=== PATIENT | female | born 1960 | race Caucasian/White ===

== ENCOUNTER 2020-12-10 21:35 | Emergency (ER) | payer MEDICARE, SELFPAY ==
[2020-12-10 21:36] VITALS: BP 96/62; PULSE 87; RESP 19; O2SAT 100
[2020-12-10 21:37] VITALS: BP 96/62; PULSE 86; RESP 20; TEMP 36.4; O2SAT 98; BMI 28.4
[2020-12-10 21:41] VITALS: BP 96/62; PULSE 86; RESP 18; TEMP 36.4; O2SAT 99
--- NOTE | 2020-12-10 22:18 | CT_ITS ---
INDICATION: left sided abd pain EXAMINATION: CT Abdomen And Pelvis W/ Contrast Injection TECHNIQUE: Helically acquired images were obtained of the abdomen and pelvis after IV contrast. A radiation dose optimization technique was used for this scan. IV Contrast dosage and agent: IV 100mL [id number]-300 Oral contrast: None. COMPARISON: None. FINDINGS: Visualized lung bases: 1 cm calcified granuloma in the lingula. Chronic interstitial lung changes. Liver: Unremarkable Gallbladder: Unremarkable Spleen: Unremarkable Pancreas: Unremarkable Adrenal Glands: Unremarkable Kidneys: Scattered too small to characterize subcentimeter hypodensities bilaterally. Vasculature: Unremarkable GI Tract: Hiatal hernia. The ascending, transverse and descending colon is prominent and filled with stool and fluid. There is mild circumferential wall thickening of the transverse colon with subtle surrounding mesenteric fat stranding. In the sigmoid colon there is a large amount of impacted stool. Distal to this the colon is decompressed. No small bowel dilatation. Lymphadenopathy: None Peritoneum: Trace free fluid in the left paracolic gutter. Bladder: Distended. Reproductive organs: Calcified fibroid. Bones/Soft tissues: No suspicious osseous or soft tissue lesions CT/Abdomen/Pelvis W IV Cont ONLY IMPRESSION: Findings concerning for infectious or inflammatory colitis. Cannot rule out early partial large bowel obstruction as there is impacted stool in the sigmoid colon with downstream decompressed colon and upstream dilated colon. No small bowel dilatation. Electronically Signed: Tung Hill MD at 23:55 EDT Tel , Service support ,
--- NOTE | 2020-12-10 22:19 | EDS_ITS ---
HPI HPI - GI History of Present Illness Chief Complaint: Abd Pain Informant: patient Abdominal Pain/Flank Pain Onset: Yesterday Context: Gradual Onset Timing: Continuous Quality: Aching Location: LLQ Current Severity: Severe Maximum Severity: Severe Worsened by: Nothing Relieved by: Nothing Nausea/Vomiting/Emesis GI Symptom: Positive for Nausea; Negative for Vomiting Onset: Today Diarrhea/Melena/Hematochezia GI Symptom: Positive for - (Last bowel movement 4 days ago, no blood); Negative for Diarrhea, Melena and Hematochezia Associated Symptoms Associated Symptoms: Negative for Dysuria, Frequency, Hematuria and Urgency Narrative Narrative: Patient with gradual onset mid lower abdominal pain that has gotten worse today, has a history of ischemic colitis. Not able to provide much in the way of details because she feels so poorly. Nauseated, no bowel movement in the last several days. No history of any abdominal surgeries in the past. Takes no anticoagulants. [facility] Medical History Colitis Gout HTN (hypertension) Home Medications allopurinol 100 mg PO DAILY 12/10/20 [History Last Taken Unknown] levothyroxine 50 mcg PO DAILY 12/10/20 [History Last Taken Unknown] lisinopril 40 mg PO DAILY 12/10/20 [History Last Taken Unknown] methocarbamol 750 mg PO TID 12/10/20 [History Last Taken Unknown] metoprolol tartrate 50 mg PO BID 12/10/20 [History Last Taken Unknown] oxycodone-acetaminophen 1 tab PO TID PRN 12/10/20 [History Last Taken Unknown] Allergy/AdvReac Type Severity Reaction Status Date / Time prednisone Allergy Other Verified 12/10/20 21:36 Surgical History History of History of tonsillectomy History of tubal ligation Social History Smoking Status: Former smoker ROS ROS ED Constitutional Constitutional ED: Denies chills or fever(s) Eyes Eyes: Denies change in vision or diplopia ENT ENT ED: Denies rhinorrhea or sore throat Cardiovascular Cardiovascular: Denies chest pain or palpitations Respiratory/Chest Respiratory/Chest: Denies cough or dyspnea Gastrointestinal Gastrointestinal: Denies abdominal pain or nausea Genitourinary Genitourinary ED: Denies dysuria or hematuria Musculoskeletal Musculoskeletal: Denies back pain or neck pain Integumentary Denies abscess or rash Neurologic Neurologic: Denies headache(s), paresthesias or weakness Psychiatric Psychiatric: Denies anxiety or suicidal thoughts EXAM Physical Exam Const Vital Signs: 12/10/20 21:36 12/10/20 21:37 12/10/20 21:41 Temperature 97.6 F L 97.6 F L Temperature Source Oral Oral Pulse Rate 87 86 86 Respiratory Rate 19 H 20 H 18 Blood Pressure 96/62 96/62 96/62 Blood Pressure Mean 73 73 73 Pulse Ox 100 98 99 Oxygen Delivery Method Room Air Room Air Room Air 12/10/20 22:36 12/10/20 22:41 12/10/20 23:00 Temperature 97.6 F L 98.1 F Temperature Source Oral Temporal Pulse Rate 80 80 81 Respiratory Rate 16 16 15 Blood Pressure 106/68 106/68 93/59 L Blood Pressure Mean 80 80 70 Pulse Ox 99 99 99 Oxygen Delivery Method Room Air Room Air Room Air 12/11/20 00:00 12/11/20 00:07 Temperature 97.8 F Temperature Source Temporal Pulse Rate 80 Respiratory Rate 16 Blood Pressure 91/71 75/59 L Blood Pressure Mean 77 64 Pulse Ox 99 Oxygen Delivery Method Room Air Positive well nourished, well developed and obese General Appearance ED: well developed and other Ill-appearing, able to talk in short sentences, alert Nutritional Appearance: obese HEENT Reports moist mucous membranes normocephalic and atraumatic Eyes PERRL and EOMs intact bilaterally Neck full ROM and supple Resp normal respiratory effort and clear to auscultation bilaterally Cardio regular rate, regular rhythm and no murmurs GI non-distended Auscultation: hypoactive bowel sounds Palpation: soft, tender LLQ (Most severe) and LUQ and guarding LLQ Back/Spine no CVA tenderness General Back: other FROM Extremity normal to inspection General Extremety ED: Negative for edema, pulses abnormal or tenderness General Extremity: Negative for edema or pulses abnormal Neuro oriented x3, CN's II-XII intact bilaterally and no sensory deficits noted Sensorium / Orientation: awake, alert and lethargic Motor Exam: strength 5/5 throughout Skin no rashes or lesions noted and no wounds MDM MDM MDM Narrative Medical decision making narrative: Patient was given a liter bolus and she had transient hypotension that was borderline at the time of evaluation, her sodium came back at 119 but after the liter was done her blood pressure was in the 70s so I felt the benefits of giving her another bolus outweighed the risks. With the CT results and leukocytosis, empiric antibiotics were started. Her lactic acid is within normal limits making ischemic colitis less likely. Since she is not vomiting an NG tube was not placed. Plan is for admission and further care. Pain was treated with fentanyl because of her blood pressure. She said I need Dilaudid, this was not done due to her blood pressures. I give her another dose of fentanyl. Her nausea was also treated. Lab Data Attestation: I reviewed the patient's lab results. Labs: Laboratory Results - last 24 hr 12/10/20 12/10/20 12/10/20 22:35 22:35 22:35 WBC 15.4 H RBC 3.69 L Hgb 11.4 L Hct 32.7 L MCV 88.6 MCH 30.9 MCHC 34.9 RDW Std Deviation 39.0 RDW Coeff of Thanh 12.0 Plt Count 384 MPV 9.4 Immature Gran % (Auto) 0.300 Neut % (Auto) 76.3 H Lymph % (Auto) 16.2 L [place] % (Auto) 4.7 Eos % (Auto) 2.0 Baso % (Auto) 0.5 Absolute Neuts (auto) 11.7 H Absolute Lymphs (auto) 2.50 Nucleated RBC % 0 Sodium 119 L* Potassium 4.0 Chloride 86 L Carbon Dioxide 23.0 Anion Gap 10 BUN 15 Creatinine 0.84 Estim Creat Clear Calc 58.18 Est GFR (MDRD) Af Amer 89 Est GFR (MDRD) Non-Af 74 BUN/Creatinine Ratio 17.9 Glucose 114 H Lactic Acid 1.4 Calcium 8.8 Total Bilirubin 1.00 AST 99 H ALT 154 H Alkaline Phosphatase 654 H Total Protein 8.0 Albumin 3.2 Globulin 4.8 H Albumin/Globulin Ratio 0.7 L Lipase 304 Urine Color Urine Clarity Urine pH Ur Specific [place] Urine Protein Urine Glucose (UA) Urine Ketones Urine Occult Blood Urine Nitrite Urine Bilirubin Urine Urobilinogen Ur Leukocyte Esterase Urine RBC Urine WBC Ur Squamous Epith Cells Urine Bacteria Hyaline Casts Urine Mucus Urine Yeast 12/10/20 22:55 WBC RBC Hgb Hct MCV MCH MCHC RDW Std Deviation RDW Coeff of Thanh Plt Count MPV Immature Gran % (Auto) Neut % (Auto) Lymph % (Auto) [place] % (Auto) Eos % (Auto) Baso % (Auto) Absolute Neuts (auto) Absolute Lymphs (auto) Nucleated RBC % Sodium Potassium Chloride Carbon Dioxide Anion Gap BUN Creatinine Estim Creat Clear Calc Est GFR (MDRD) Af Amer Est GFR (MDRD) Non-Af BUN/Creatinine Ratio Glucose Lactic Acid Calcium Total Bilirubin AST ALT Alkaline Phosphatase Total Protein Albumin Globulin Albumin/Globulin Ratio Lipase Urine Color Yellow Urine Clarity Cloudy Urine pH 7.0 Ur Specific [place] 1.010 Urine Protein Negative Urine Glucose (UA) Normal Urine Ketones 5 H Urine Occult Blood 10 H Urine Nitrite Negative Urine Bilirubin Negative Urine Urobilinogen 4 H Ur Leukocyte Esterase 25 H Urine RBC 0-5 SEEN Urine WBC 5-10 SEEN Ur Squamous Epith Cells 10-25 SEEN Urine Bacteria 1+ Hyaline Casts 0-5 SEEN Urine Mucus 0 SEEN Urine Yeast RARE Radiography Diagnostic Testing: Radiology Impression Abdomen/Pelvis CT 12/10/20 22:18 IMPRESSION: Findings concerning for infectious or inflammatory colitis. Cannot rule out early partial large bowel obstruction as there is impacted stool in the sigmoid colon with downstream decompressed colon and upstream dilated colon. No small bowel dilatation. Electronically Signed: Tung Hill MD at 23:55 EDT Tel , Service support , Critical Care Time Critical Care Time: Yes Critical care time (excluding procedures): 30-74 minutes (32 min), Including time spent:, Discussing w/Patient &/or Family/Director Of Database Marketing, Discussing w/Consultants, Arranging Admission or Transfer and Performing Direct Patient Care at Bedside Discharge Plan Dx/Rx/DC Orders Clinical Impression: Acute colitis, Acute hypotension, Acute hyponatremia Disposition Disposition: [facility]
[2020-12-10 22:36] VITALS: BP 106/68; PULSE 80; RESP 16; O2SAT 99
[2020-12-10] MEDS: Ondansetron 4 MG/2 ML Vial IV (22:38)
[2020-12-10] MEDS: fentaNYL 100 MCG/2 ML Ampul 50 MCG IV (22:38)
[2020-12-10] MEDS: 0.9% Normal Saline 1,000 ML 1000 ML IV (22:39)
[2020-12-10 22:41] VITALS: BP 106/68; PULSE 80; RESP 16; TEMP 36.4; O2SAT 99
[2020-12-10 22:49] LABS: Absolute Neutrophil Count 11.7 X10^3/uL (2.0-7.7); Basophil# 0.08 X10^3/uL; Basophil% 0.5 % (0-1); Eosinophil# 0.31 X10^3/uL; Hematocrit 32.7 % (37-47); Hemoglobin 11.4 g/dL (12.0-15.0); Lymphocyte % 16.2 % (19-41); Mean Corp Hgb Conc 34.9 g/dL (32-36); Mean Corpuscular Hgb 30.9 pg (27.0-32.0); Mean Corpuscular Volume 88.6 fL (81-99); Mean Platelet Vol. 9.4 fl (6.2-12.0); Monocyte# 0.73 X10^3/uL; Monocyte% 4.7 % (0-10); NRBC Flagged by Analyzer 0 % (0-5); Neutrophil # 11.73 X10^3/uL (2.7-7.7); Neutrophil % 76.3 % (47-70); Platelet Count 384 K/mm3 (150-450); Red Blood Count 3.69 M/mm3 (4.2-5.4); White Blood Count 15.4 K/mm3 (4.4-11.0)
[2020-12-10 23:00] VITALS: BP 93/59; PULSE 81; RESP 15; TEMP 36.7; O2SAT 99
[2020-12-10 23:00] LABS: Mucous, Urine 0 SEEN /hpf (<or=2+)
[2020-12-10 23:12] LABS: Color, Urine Yellow (Yellow); Glucose, Dipstick Normal (Normal); Ketone-Dipstick 5 mg/dl (Negative); Leukocyte Esterase-Dipstick 25 /ul (Negative); Nitrite-Dipstick Negative (Negative); Occult Blood-Urine 10 /ul (Negative); Protein-Dipstick Negative (Negative); Urine Bilirubin Dipstick Negative (Negative); Urine Clarity Cloudy (Clear); Urine Urobilinogen 4 mg/dl (Normal)
[2020-12-10 23:18] LABS: ALB/GLOB Ratio 0.7 RATIO (0.9-2.4); AST(SGOT) 99 U/L (15-37); Alanine Aminotransfer ALT/SGPT 154 U/L (13-56); Albumin, Serum 3.2 g/dL (3.2-5.0); Alkaline Phosphatase 654 U/L (45-117); Anion Gap 10 (5-15); BUN 15 mg/dL (7-18); BUN/Creat Ratio 17.9 RATIO (10-20); Calcium,Total 8.8 mg/dL (8.5-10.1); Chloride 86 mmol/L (98-107); Creatinine, Serum 0.84 mg/dL (0.55-1.02); EST Glomerular Filtration Rate 74 mL/min (>60); Est Glom Filt Rate - Afr Amer 89 mL/min (>60); Estimated Creatinine Clearance 58.18 ml/min; Globulin 4.8 g/dL (2.2-4.2); Glucose 114 mg/dL (74-106); Lipase 304 U/L (73-393); Sodium Level 119 mmol/L (136-145)
[2020-12-10 23:30] LABS: Bacteria 1+ /hpf (None Seen); Hyaline Cast 0-5 SEEN /lpf (0-5)
[2020-12-10 23:35] LABS: Squamous Epithelial Cells - UA 10-25 SEEN /hpf (5-10)
[2020-12-10 23:35] LABS: Lactic Acid 1.4 mmol/L (0.4-1.9)
[2020-12-10 23:36] LABS: Red Blood Cells-Urine 0-5 SEEN /hpf (0-5); White Blood Cells 5-10 SEEN /hpf (0-5); Yeast-Urine RARE /hpf (None Seen)
[2020-12-11] VITALS (15 sets, daily range): BP systolic 64–110; BP diastolic 42–71; PULSE 80–98; RESP 14–18; TEMP 36.1–36.9; O2SAT 94–99
[2020-12-11] MEDS: fentaNYL 100 MCG/2 ML Ampul IV (00:16)
[2020-12-11] MEDS: 0.9% Normal Saline 1,000 ML 999 ML IV (00:16)
[2020-12-11] MEDS: Ciprofloxacin 400 MG/200 ML BAG 200 MG IV (00:25)
--- NOTE | 2020-12-11 01:00 | HP.PCM_ITS ---
HPI - General General Date of Admission: 12/11/20 HPI Narrative JOHNNA NORMAN, is a 60 F who presents with a 3-day history of abdominal pain. Patient reports she has not had a bowel movement in 4 to 5 days. Patient states abdominal pain is all over her abdomen and 10 out of 10 despite having received multiple doses of pain medication. Patient also reports nausea. Patient denies fever, chills, diarrhea or vomiting. [facility] Medical History (Updated 12/11/20 @ 01:06 by Darlene Simmons NP-C) Gout HTN (hypertension) Hypothyroidism Home Medications allopurinol 100 mg PO DAILY 12/10/20 [History Last Taken Unknown] levothyroxine 50 mcg PO DAILY 12/10/20 [History Last Taken Unknown] lisinopril 40 mg PO DAILY 12/10/20 [History Last Taken Unknown] methocarbamol 750 mg PO TID 12/10/20 [History Last Taken Unknown] metoprolol tartrate 50 mg PO BID 12/10/20 [History Last Taken Unknown] oxycodone-acetaminophen 1 tab PO TID PRN 12/10/20 [History Last Taken Unknown] Allergy/AdvReac Type Severity Reaction Status Date / Time prednisone Allergy Other Verified 12/10/20 21:36 Surgical History History of History of tonsillectomy History of tubal ligation Social History Smoking Status: Former smoker ROS Constitutional Constitutional: Denies anorexia, chills or fever(s) Cardiovascular Cardiovascular: Denies chest pain, edema or palpitations Respiratory/Chest Respiratory/Chest: Denies cough, shortness of breath at rest or shortness of breath with exertion Gastrointestinal Gastrointestinal: Reports abdominal pain, constipation and nausea; Denies diarrhea, melena or vomiting Genitourinary Genitourinary: Denies dysuria Musculoskeletal Musculoskeletal: Denies back pain, extremity pain, joint pain or joint stiffness Integumentary Integumentary: Denies dry skin Neurologic Neurologic: Denies abnormal gait or abnormal speech Psychiatric Psychiatric: Denies anxiety or depression Endocrine Endocrinology: Denies change in body appearance Hematologic/Lymphatic Hematologic/Lymphatic: Denies easy bleeding or easy bruising Vital Signs Vital Signs Vital Signs: 12/10/20 21:36 12/10/20 21:37 12/10/20 21:41 Temperature 97.6 F L 97.6 F L Temperature Source Oral Oral Pulse Rate 87 86 86 Respiratory Rate 19 H 20 H 18 Blood Pressure 96/62 96/62 96/62 Blood Pressure Mean 73 73 73 Pulse Ox 100 98 99 Oxygen Delivery Method Room Air Room Air Room Air 12/10/20 22:36 12/10/20 22:41 12/10/20 23:00 Temperature 97.6 F L 98.1 F Temperature Source Oral Temporal Pulse Rate 80 80 81 Respiratory Rate 16 16 15 Blood Pressure 106/68 106/68 93/59 L Blood Pressure Mean 80 80 70 Pulse Ox 99 99 99 Oxygen Delivery Method Room Air Room Air Room Air 12/11/20 00:00 12/11/20 00:07 Temperature 97.8 F Temperature Source Temporal Pulse Rate 80 Respiratory Rate 16 Blood Pressure 91/71 75/59 L Blood Pressure Mean 77 64 Pulse Ox 99 Oxygen Delivery Method Room Air Weight Weight: 160 lb 11.472 oz Body Mass Index (BMI) 28.4 Physical Exam Const alert and oriented x3 Nutritional Appearance: obese HEENT normocephalic and head/scalp atraumatic Eyes conjunctivae normal and no scleral icterus Neck supple and no JVD General: trachea midline Resp normal respiratory effort, normal air movement and clear to auscultation bilaterally Cardio regular rate, regular rhythm, S1 normal heart sound and S2 normal heart sound GI Auscultation: hypoactive bowel sounds Palpation: tender and guarding Extremity normal capillary refill and no clubbing, cyanosis or edema General Extremity: no tenderness to palpation of joints or extremities Skin General Skin Exam: no breakdown and turgor normal Lesions: no lesions Rashes: no rashes Neuro no focal motor deficits and no sensory deficits noted Motor Exam: strength 5/5 throughout Psych cooperative Attitude: bizarre Speech: minimal Results Lab / Micro Data Result Diagrams: 12/10/20 22:35 12/10/20 22:35 Labs: Laboratory Results - last 24 hr 12/10/20 12/10/20 12/10/20 22:35 22:35 22:35 WBC 15.4 H RBC 3.69 L Hgb 11.4 L Hct 32.7 L MCV 88.6 MCH 30.9 MCHC 34.9 RDW Std Deviation 39.0 RDW Coeff of Thanh 12.0 Plt Count 384 MPV 9.4 Immature Gran % (Auto) 0.300 Neut % (Auto) 76.3 H Lymph % (Auto) 16.2 L [place] % (Auto) 4.7 Eos % (Auto) 2.0 Baso % (Auto) 0.5 Absolute Neuts (auto) 11.7 H Absolute Lymphs (auto) 2.50 Nucleated RBC % 0 Sodium 119 L* Potassium 4.0 Chloride 86 L Carbon Dioxide 23.0 Anion Gap 10 BUN 15 Creatinine 0.84 Estim Creat Clear Calc 58.18 Est GFR (MDRD) Af Amer 89 Est GFR (MDRD) Non-Af 74 BUN/Creatinine Ratio 17.9 Glucose 114 H Lactic Acid 1.4 Calcium 8.8 Total Bilirubin 1.00 AST 99 H ALT 154 H Alkaline Phosphatase 654 H Total Protein 8.0 Albumin 3.2 Globulin 4.8 H Albumin/Globulin Ratio 0.7 L Lipase 304 Urine Color Urine Clarity Urine pH Ur Specific [place] Urine Protein Urine Glucose (UA) Urine Ketones Urine Occult Blood Urine Nitrite Urine Bilirubin Urine Urobilinogen Ur Leukocyte Esterase Urine RBC Urine WBC Ur Squamous Epith Cells Urine Bacteria Hyaline Casts Urine Mucus Urine Yeast 12/10/20 22:55 WBC RBC Hgb Hct MCV MCH MCHC RDW Std Deviation RDW Coeff of Thanh Plt Count MPV Immature Gran % (Auto) Neut % (Auto) Lymph % (Auto) [place] % (Auto) Eos % (Auto) Baso % (Auto) Absolute Neuts (auto) Absolute Lymphs (auto) Nucleated RBC % Sodium Potassium Chloride Carbon Dioxide Anion Gap BUN Creatinine Estim Creat Clear Calc Est GFR (MDRD) Af Amer Est GFR (MDRD) Non-Af BUN/Creatinine Ratio Glucose Lactic Acid Calcium Total Bilirubin AST ALT Alkaline Phosphatase Total Protein Albumin Globulin Albumin/Globulin Ratio Lipase Urine Color Yellow Urine Clarity Cloudy Urine pH 7.0 Ur Specific [place] 1.010 Urine Protein Negative Urine Glucose (UA) Normal Urine Ketones 5 H Urine Occult Blood 10 H Urine Nitrite Negative Urine Bilirubin Negative Urine Urobilinogen 4 H Ur Leukocyte Esterase 25 H Urine RBC 0-5 SEEN Urine WBC 5-10 SEEN Ur Squamous Epith Cells 10-25 SEEN Urine Bacteria 1+ Hyaline Casts 0-5 SEEN Urine Mucus 0 SEEN Urine Yeast RARE Radiology Impression Abdomen/Pelvis CT 12/10/20 22:18 IMPRESSION: Findings concerning for infectious or inflammatory colitis. Cannot rule out early partial large bowel obstruction as there is impacted stool in the sigmoid colon with downstream decompressed colon and upstream dilated colon. No small bowel dilatation. Electronically Signed: uTng Hill MD at 23:55 EDT Tel , Service support , Assessment & Plan Assessment/Plan (1) Acute colitis: (2) Acute hypotension: (3) Acute hyponatremia: PLAN: 1. Acute colitis -Admit to ICU -CT concerning for infectious or inflammatory colitis. Cannot rule out early partial large bowel obstruction as there is impacted stool in the sigmoid colon with downstream decompressed colon and upstream dilated colon. -Patient received initial dose of ciprofloxacin and metronidazole in ER, will continue. -Dr. Gamble consulted for surgical evaluation -Clear liquid diet ordered -Vital signs per protocol 2. Acute hypotension -Likely secondary to colitis -IV fluids ordered -Patient received 2 L boluses in ER, no improvement in blood pressure 3. Acute hyponatremia -Etiology unknown, initial level 119. -Urine sodium,chloride, creatinine and osmolality ordered along with serum osmolality -Normal saline with 20 mEq of potassium chloride at 100 ml/hr ordered 4. Hypothyroidism -Continue levothyroxine DVT prophylaxis-subcu Lovenox This patient was seen by JOEL MorinC under the supervision of Dr. Luna.
--- NOTE | 2020-12-11 01:39 | EX.PCM.CON.S ---
Assessment & Plan Assessment/Plan (1) Acute colitis: (2) Acute abdomen: PLAN: Patient has significant abdominal pain in reviewing the CAT scan she is going to need to have colorectal surgery involvement here for a possible subtotal colectomy. I believe this patient would be better served at a tertiary referral center and have spoken to the emergency room physician who will be transferring her. HPI Consult Data Date of Consult: 12/11/20 HPI Narrative HPI Narrative: JOHNNA NORMAN, is a 60 F who presents with a 3-day history of abdominal pain. Patient reports she has not had a bowel movement in 4 to 5 days. Patient states abdominal pain is all over her abdomen and 10 out of 10 despite having received multiple doses of pain medication. Patient also reports nausea. Patient denies fever, chills, diarrhea or vomiting. Patient is also noted to be hypotensive in the emergency department. [facility] Medical History Gout HTN (hypertension) Hypothyroidism Home Medications allopurinol 100 mg PO DAILY 12/10/20 [History Last Taken Unknown] levothyroxine 50 mcg PO DAILY 12/10/20 [History Last Taken Unknown] lisinopril 40 mg PO DAILY 12/10/20 [History Last Taken Unknown] methocarbamol 750 mg PO TID 12/10/20 [History Last Taken Unknown] metoprolol tartrate 50 mg PO BID 12/10/20 [History Last Taken Unknown] oxycodone-acetaminophen 1 tab PO TID PRN 12/10/20 [History Last Taken Unknown] Allergy/AdvReac Type Severity Reaction Status Date / Time prednisone Allergy Other Verified 12/10/20 21:36 Surgical History History of History of tonsillectomy History of tubal ligation Social History Smoking Status: Former smoker ROS Constitutional Constitutional: Denies chills or fever(s) Cardiovascular Cardiovascular: Denies chest pain or dyspnea Respiratory/Chest Respiratory/Chest: Denies cough or dyspnea Gastrointestinal Gastrointestinal: Reports abdominal pain, constipation and nausea Genitourinary Genitourinary: Denies change in urinary stream Physical Exam Const alert and oriented x3 General Appearance: cooperative Eyes PERRL and EOMs intact bilaterally Resp clear to auscultation bilaterally Cardio Rate: regular rate Rhythm: regular rhythm GI Inspection: abdominal distention Auscultation: hypoactive bowel sounds Palpation: tender and guarding Extremity General Extremity: edema; Negative for calf tenderness Lab / Micro Data Result Diagrams: 12/10/20 22:35 12/10/20 22:35 Labs: Laboratory Results - last 24 hr 12/10/20 12/10/20 12/10/20 22:35 22:35 22:35 WBC 15.4 H RBC 3.69 L Hgb 11.4 L Hct 32.7 L MCV 88.6 MCH 30.9 MCHC 34.9 RDW Std Deviation 39.0 RDW Coeff of Thanh 12.0 Plt Count 384 MPV 9.4 Immature Gran % (Auto) 0.300 Neut % (Auto) 76.3 H Lymph % (Auto) 16.2 L [place] % (Auto) 4.7 Eos % (Auto) 2.0 Baso % (Auto) 0.5 Absolute Neuts (auto) 11.7 H Absolute Lymphs (auto) 2.50 Nucleated RBC % 0 Sodium 119 L* Potassium 4.0 Chloride 86 L Carbon Dioxide 23.0 Anion Gap 10 BUN 15 Creatinine 0.84 Estim Creat Clear Calc 58.18 Est GFR (MDRD) Af Amer 89 Est GFR (MDRD) Non-Af 74 BUN/Creatinine Ratio 17.9 Glucose 114 H Lactic Acid 1.4 Calcium 8.8 Total Bilirubin 1.00 AST 99 H ALT 154 H Alkaline Phosphatase 654 H Total Protein 8.0 Albumin 3.2 Globulin 4.8 H Albumin/Globulin Ratio 0.7 L Lipase 304 Urine Color Urine Clarity Urine pH Ur Specific [place] Urine Protein Urine Glucose (UA) Urine Ketones Urine Occult Blood Urine Nitrite Urine Bilirubin Urine Urobilinogen Ur Leukocyte Esterase Urine RBC Urine WBC Ur Squamous Epith Cells Urine Bacteria Hyaline Casts Urine Mucus Urine Yeast 12/10/20 22:55 WBC RBC Hgb Hct MCV MCH MCHC RDW Std Deviation RDW Coeff of Thanh Plt Count MPV Immature Gran % (Auto) Neut % (Auto) Lymph % (Auto) [place] % (Auto) Eos % (Auto) Baso % (Auto) Absolute Neuts (auto) Absolute Lymphs (auto) Nucleated RBC % Sodium Potassium Chloride Carbon Dioxide Anion Gap BUN Creatinine Estim Creat Clear Calc Est GFR (MDRD) Af Amer Est GFR (MDRD) Non-Af BUN/Creatinine Ratio Glucose Lactic Acid Calcium Total Bilirubin AST ALT Alkaline Phosphatase Total Protein Albumin Globulin Albumin/Globulin Ratio Lipase Urine Color Yellow Urine Clarity Cloudy Urine pH 7.0 Ur Specific [place] 1.010 Urine Protein Negative Urine Glucose (UA) Normal Urine Ketones 5 H Urine Occult Blood 10 H Urine Nitrite Negative Urine Bilirubin Negative Urine Urobilinogen 4 H Ur Leukocyte Esterase 25 H Urine RBC 0-5 SEEN Urine WBC 5-10 SEEN Ur Squamous Epith Cells 10-25 SEEN Urine Bacteria 1+ Hyaline Casts 0-5 SEEN Urine Mucus 0 SEEN Urine Yeast RARE Radiology Impression Abdomen/Pelvis CT 12/10/20 22:18 IMPRESSION: Findings concerning for infectious or inflammatory colitis. Cannot rule out early partial large bowel obstruction as there is impacted stool in the sigmoid colon with downstream decompressed colon and upstream dilated colon. No small bowel dilatation. Electronically Signed: Tung Hill MD at 23:55 EDT Tel , Service support ,
[2020-12-11] MEDS: metroNIDAZOLE 500 MG/100 ML BAG 100 MG IV (01:47)
[2020-12-11 02:04] LABS: Osmolality, Serum 253 mOsm/KG (280-301)
[2020-12-11] MEDS: fentaNYL 100 MCG/2 ML Ampul 50 MCG IV ×2 (02:11→03:00)
[2020-12-11] MEDS: 0.9% Normal Saline 1,000 ML 200 ML IV (02:11)
[2020-12-11] MEDS: Metoclopramide 10 MG/2 ML Vial 5 MG IV (03:00)
[2020-12-11 03:02] LABS: Urine Chloride 51 mmol/L (Not Establ.); Urine Sodium 45 mmol/L (Not Establ.)
[2020-12-11 03:20] LABS: Osmolality, Urine 283 mOsm/KG
--- NOTE | 2020-12-11 03:29 | RAD_ITS ---
[employer] Unformatted Report Format: Options: n 2f 2i act cap dr felder wm wcta sl lj Gender: Female : 1960 Exam: XR Chest 1 View Comparison: History: line placement Contrast: Left jugular catheter is in place with the distal tip at the junction of the superior vena cava and right atrium. Impression. No acute pulmonary abnormality. Impression. Left central venous catheter in good position. at [id number] Reported and signed by: Louis Rossi MD Electronically Signed: Louis Rossi MD at 3:52 EDT Tel , Service support , RAD/Chest 1 View (Portable)
--- NOTE | 2020-12-11 04:10 | NURSING ---
ACCEPTED TO [facility] GOING TO [id number]
[2020-12-11] MEDS: HYDROmorphone 1 MG/ML Syringe IV (04:22)
[2020-12-11] MEDS: Ondansetron 4 MG/2 ML Vial IV (04:35)
--- NOTE | 2020-12-11 06:28 | ED.RN ---
physicians ambulance at the bedside to transport patient. They are having difficult time obtaining blood pressure on their monitor at this time. Finally able to obtain bp. Written orders provided for titration of leveophed during transport. At this time they feel patient requires additional personal for transport. Second ems crew enroute to assist crew. Once crew arrives they will transport patient
== END 2020-12-11 06:45 | disposition short-term general hospital (02) ==
LOC: ED 12-11 00:41 → ICU 12-11 02:05
PROVIDERS: Hospitalist; Emergency Provider Emergency Medicine; PCP Internal Medicine
DX: K52.9 Noninfective gastroenteritis and colitis, unspecified (principal); I95.9 Hypotension, unspecified; E87.1 Hypo-osmolality and hyponatremia; I10 Essential (primary) hypertension; E03.9 Hypothyroidism, unspecified; Z87.891 Personal history of nicotine dependence; Z79.899 Other long term (current) drug therapy
CPT/HCPCS: 36556; 71045; 74177; 80053; 81001; 82436; 82570; 83605; 83690; 83930; 83935; 84300; 85025; 96365; 96366; 96367; 96375; 96376; 99285; J7030; J7050; Q9967; A4216; J0744; J2405

== ENCOUNTER 2021-01-08 16:44 | Emergency (ER) | payer MEDICARE, SELFPAY ==
[2021-01-08 16:45] VITALS: BP 146/91; PULSE 86; RESP 16; TEMP 36.8; O2SAT 100; BMI 25.9
--- NOTE | 2021-01-08 17:43 | NURSING ---
appliance replaced to ileostomy with teaching to family given.
--- NOTE | 2021-01-08 18:00 | EDS_ITS ---
HPI History of Present Illness Chief Complaint: Wound Check Narrative Narrative: Patient presents with increased ostomy output transiently. Patient was seen here recently had ischemic bowel. She had colectomy with ostomy placement about 1 month ago. She was in the hospital for couple weeks. She had some episodes of increased ostomy output there. She just got back from [place] today as she had been staying with her sister. She was eating and drinking well. She ate some food and then the ostomy discharge a large amount of what appeared to be in a dirty or quevedo-colored water. There is no pain other than some burning on the skin from it. The ostomy output seems to have now stopped. She states she has been healing well. She is not having abdominal pain. She had burning on the skin only. She has no nausea vomiting. She has been eating very well. No fevers or chills. No chest pain. [facility] Medical History (Updated 01/08/21 @ 19:[address] Charlie Hughes MD) Gout HTN (hypertension) Hypothyroidism Ileostomy in place Home Medications allopurinol 100 mg PO DAILY 12/10/20 [History Last Taken Unknown] levothyroxine 50 mcg PO DAILY 12/10/20 [History Last Taken Unknown] lisinopril 40 mg PO DAILY 12/10/20 [History Last Taken Unknown] metoprolol tartrate 25 mg PO BID 12/10/20 [History Last Taken Unknown] ciprofloxacin HCl 500 mg PO DAILY 01/08/21 [History Last Taken Unknown] fluconazole 100 mg PO DAILY 01/08/21 [History Last Taken Unknown] ondansetron HCl 4 mg PO Q8 PRN 01/08/21 [History Last Taken Unknown] oxycodone 10 mg PO Q6H 01/08/21 [History Last Taken Unknown] Allergy/AdvReac Type Severity Reaction Status Date / Time prednisone Allergy Other Verified 01/08/21 16:47 sulfamethoxazole AdvReac Upset Verified 01/08/21 16:48 [From Bactrim] Stomach trimethoprim [From Bactrim] AdvReac Upset Verified 01/08/21 16:48 Stomach Surgical History History of History of tonsillectomy History of tubal ligation Social History Smoking Status: Former smoker ROS ROS ED Constitutional Constitutional ED: Denies chills, fever(s) or weight loss Eyes Eyes: Denies change in vision ENT ENT ED: Denies rhinorrhea Cardiovascular Cardiovascular: Denies chest pain or palpitations Respiratory/Chest Respiratory/Chest: Denies cough, dyspnea, dyspnea on exertion or sputum Gastrointestinal Gastrointestinal: Reports diarrhea; Denies abdominal pain, constipation, melena, nausea or vomiting Genitourinary Genitourinary ED: Denies dysuria Musculoskeletal Musculoskeletal: Denies arthralgias, back pain, myalgias or neck pain Integumentary Denies abscess or rash Neurologic Neurologic: Denies headache(s) or weakness Psychiatric Psychiatric: Denies depression Endocrine Endocrinology: Denies polyuria Allergic/Immunologic Allergic/Immunologic ED: Denies urticaria EXAM Physical Exam Const Vital Signs: 01/08/21 16:45 Temperature 98.2 F Temperature Source Oral Pulse Rate 86 Respiratory Rate 16 Blood Pressure 146/91 H Blood Pressure Mean 109 Pulse Ox 100 Oxygen Delivery Method Room Air Positive well nourished and well developed General Appearance ED: well developed and NAD HEENT Negative for trauma Eyes General Eye ED: Negative for pale conjunctiva or scleral icterus Neck no JVD Chest Wall inspection of chest normal Resp normal respiratory effort Cardio regular rate and regular rhythm GI normal to inspection, nondistended, normoactive bowel sounds and non-tender GI Narrative: Patient's ostomy looks healthy and pink. Is not putting out any notable amount of fluid now. Her abdomen is completely benign. Palpation: soft Back/Spine no CVA tenderness General Back: CVA tenderness Extremity normal to inspection Neuro oriented x3 Sensorium / Orientation: alert Psych mental status grossly normal Skin no rashes or lesions noted MDM MDM MDM Narrative Medical decision making narrative: Patient has a minimal white count. This is nonspecific. Electrolytes look good. She does not have low potassium. The cramping she had in her hands is totally gone. She had some bluish-quevedo fluid come out of her ostomy. But I also find out she has been drinking a very large amount of purple Gatorade. She feels totally asymptomatic now. The ostomy is draining normally. Her abdomen is benign. I think she is safe to go home and follow-up with Dr. Morin. Lab Data Labs: Laboratory Results - last 24 hr 01/08/21 01/08/21 18:00 18:00 WBC 12.1 H RBC 3.02 L Hgb 9.5 L Hct 30.4 L MCV 100.7 H MCH 31.5 MCHC 31.3 L RDW Std Deviation 59.7 H RDW Coeff of Thanh 16.2 H Plt Count 419 MPV 9.6 Immature Gran % (Auto) 0.600 Neut % (Auto) 66.8 Lymph % (Auto) 18.9 L [place] % (Auto) 8.6 Eos % (Auto) 4.3 Baso % (Auto) 0.8 Absolute Neuts (auto) 8.1 H Absolute Lymphs (auto) 2.29 Nucleated RBC % 0 Sodium 130 L Potassium 4.5 Chloride 95 L Carbon Dioxide 28.0 Anion Gap 7 BUN 17 Creatinine 0.69 Estim Creat Clear Calc 70.83 Est GFR (MDRD) Af Amer 111 Est GFR (MDRD) Non-Af 91 BUN/Creatinine Ratio 24.5 H Glucose 104 Calcium 9.6 Discharge Plan Triage Chief Complaint: Wound Check ED Provider: Charlie Hughes Dx/Rx/DC Orders Clinical Impression: Altered bowel elimination due to intestinal ostomy Instructions: Ileostomy: Caring For Your Stoma Prescriptions: No Action allopurinol 100 mg tablet 100 mg PO DAILY RF: 0 levothyroxine 50 mcg tablet 50 mcg PO DAILY RF: 0 metoprolol tartrate 50 mg tablet 25 mg PO BID RF: 0 lisinopril 40 mg tablet 40 mg PO DAILY RF: 0 fluconazole 100 mg tablet 100 mg PO DAILY RF: 0 ondansetron HCl 4 mg tablet 4 mg PO Q8 PRN (Reason: Nausea) RF: 0 ciprofloxacin HCl 500 mg tablet 500 mg PO DAILY RF: 0 oxycodone 10 mg tablet 10 mg PO Q6H RF: 0 Primary Care Provider: Scarlett Chen Referrals: Scarlett Chen DO [Primary Care Provider] - Activity Restrictions/Additional Instructions: Follow-up with Dr. Morin at [facility] as scheduled. Disposition Disposition: Home, Self Care
[2021-01-08 18:05] LABS: Absolute Lymphocyte Count 2.29 X10^3/uL (0.83-4.51); Absolute Neutrophil Count 8.1 X10^3/uL (2.0-7.7); Basophil% 0.8 % (0-1); Eosinophil# 0.52 X10^3/uL; Eosinophils% 4.3 % (0-5); Hematocrit 30.4 % (37-47); Hemoglobin 9.5 g/dL (12.0-15.0); Lymphocyte # 2.29 X10^3/ul (0.83-4.51); Lymphocyte % 18.9 % (19-41); Mean Corp Hgb Conc 31.3 g/dL (32-36); Mean Corpuscular Hgb 31.5 pg (27.0-32.0); Mean Corpuscular Volume 100.7 fL (81-99); Mean Platelet Vol. 9.6 fl (6.2-12.0); Monocyte# 1.04 X10^3/uL; Monocyte% 8.6 % (0-10); NRBC Flagged by Analyzer 0 % (0-5); Neutrophil # 8.12 X10^3/uL (2.7-7.7); Neutrophil % 66.8 % (47-70); Platelet Count 419 K/mm3 (150-450); RBC Distribution Width CV 16.2 % (11.6-14.6); RBC Distribution Width SD 59.7 fl (35.1-43.9); Red Blood Count 3.02 M/mm3 (4.2-5.4); White Blood Count 12.1 K/mm3 (4.4-11.0)
[2021-01-08 18:47] LABS: Anion Gap 7 (5-15); BUN 17 mg/dL (7-18); BUN/Creat Ratio 24.5 RATIO (10-20); Calcium,Total 9.6 mg/dL (8.5-10.1); Chloride 95 mmol/L (98-107); Creatinine, Serum 0.69 mg/dL (0.55-1.02); EST Glomerular Filtration Rate 91 mL/min (>60); Est Glom Filt Rate - Afr Amer 111 mL/min (>60); Estimated Creatinine Clearance 70.83 ml/min; Glucose 104 mg/dL (74-106); Potassium 4.5 mmol/L (3.5-5.1); Sodium Level 130 mmol/L (136-145)
[2021-01-08 20:23] VITALS: BP 130/71; PULSE 86; RESP 15; O2SAT 100
== END 2021-01-08 20:28 | disposition home or self-care (01) ==
PROVIDERS: Emergency Provider Emergency Medicine; PCP Internal Medicine
DX: Z43.2 Encounter for attention to ileostomy (principal); I10 Essential (primary) hypertension; E03.9 Hypothyroidism, unspecified; M10.9 Gout, unspecified; Z79.899 Other long term (current) drug therapy; Z87.891 Personal history of nicotine dependence
CPT/HCPCS: 80048; 85025; 87493; 99285

== ENCOUNTER 2021-12-18 11:30 | Emergency (ER) | payer MEDICARE, SELFPAY ==
[2021-12-18 11:31] VITALS: BP 173/86; PULSE 107; RESP 16; TEMP 36.8; O2SAT 97; BMI 28.3
--- NOTE | 2021-12-18 11:41 | EKG12_ITS ---
Test Reason : Blood Pressure : / mmHG Vent. Rate : 092 BPM Atrial Rate : 092 BPM P-R Int : 212 ms QRS Dur : 082 ms QT Int : 340 ms P-R-T Axes : 005 -22 023 degrees QTc Int : 420 ms Sinus rhythm with 1st degree A-V block Low voltage QRS Borderline ECG Confirmed by ENMANUEL CUEVAS, JESSICA ([id number]), online editor PORTIA DURAN ([id number]) on 12/20/2021 8:15:02 AM Referred By: Confirmed By:JESSICA SINGER MD
--- NOTE | 2021-12-18 11:41 | CT_ITS ---
STUDY: CT BRAIN WITHOUT CONTRAST REASON FOR EXAM: Female, 61 years old. confusion RADIATION DOSAGE (If Supplied By Facility): CTDIvol = ( 47.06 ) mGy, DLP = ( 925.62 ) mGycm TECHNIQUE: Transaxial CT imaging of the brain was performed without administration of intravenous contrast material. Individualized dose optimization techniques were used for this CT. COMPARISON: No relevant priors. FINDINGS: There is no intra-/extra-axial fluid collection, mass effect, or midline shift. The quevedo/white matter junction is preserved. The basal cisterns are patent. Bilateral paranasal sinuses and mastoid air cells are clear. The calvarium is intact. CT/Brain/Head without Contrast IMPRESSION: No acute intracranial finding. MRI may be obtained if clinically indicated. Electronically Signed: Mick Barrientos MD at 13:02 EDT ,
--- NOTE | 2021-12-18 11:43 | EDS_ITS ---
HPI History of Present Illness Chief Complaint: Alt LOC Narrative Narrative: 61-year-old female presenting via EMS for confusion. Apparently her called and stated she had been acting abnormally. She is texting inappropriate things to her son. She states that her has been angry with her because of the way she is keeping her feet. I asked her what brought her here today that she points to the blood pressure cuff. She states she has been eating normally and has no GI or complaints. Patient is a poor informant. [facility] Medical History Gout HTN (hypertension) Hypothyroidism Ileostomy in place Home Medications allopurinol 100 mg tablet 100 mg PO DAILY 12/10/20 [History Last Taken Unknown] levothyroxine 50 mcg tablet 50 mcg PO DAILY 12/10/20 [History Last Taken Unknown] lisinopril 40 mg tablet 40 mg PO DAILY 12/10/20 [History Last Taken Unknown] metoprolol tartrate 50 mg tablet 25 mg PO BID 12/10/20 [History Last Taken Unknown] ciprofloxacin HCl 500 mg tablet 500 mg PO DAILY 01/08/21 [History Last Taken Unknown] fluconazole 100 mg tablet 100 mg PO DAILY 01/08/21 [History Last Taken Unknown] ondansetron HCl 4 mg tablet 4 mg PO Q8 PRN Nausea 01/08/21 [History Last Taken Unknown] oxycodone 10 mg tablet 10 mg PO Q6H 01/08/21 [History Last Taken Unknown] Allergy/AdvReac Type Severity Reaction Status Date / Time prednisone Allergy Other Verified 12/18/21 11:37 sulfamethoxazole AdvReac Upset Verified 12/18/21 11:37 [From Bactrim] Stomach trimethoprim [From Bactrim] AdvReac Upset Verified 12/18/21 11:37 Stomach Surgical History History of History of tonsillectomy History of tubal ligation Social History Smoking Status: Former smoker ROS ROS ED Review of Systems ROS Unobtainable: due to mental status EXAM Physical Exam Const Vital Signs: 12/18/21 11:31 12/18/21 11:46 12/18/21 13:58 Temperature 98.2 F Temperature Source Oral Pulse Rate 107 H 90 Respiratory Rate 16 16 Respiratory Effort Normal Non-Labored Blood Pressure 173/86 H 145/79 H Blood Pressure Mean 115 101 Pulse Ox 97 98 Oxygen Delivery Method Room Air Room Air Positive well nourished General Appearance ED: Negative for pallor HEENT Reports moist mucous membranes Eyes PERRL and EOMs intact bilaterally General Eye ED: Negative for pale conjunctiva or scleral icterus Resp normal respiratory effort Cardio regular rhythm Rate: tachycardic GI normal to inspection, nondistended, normoactive bowel sounds Neuro CN's II-XII intact bilaterally and no sensory deficits noted Neuro Narrative: No focal neurologic deficits or lateralizing signs or symptoms. Patient is alert to self but to time, date. Sensorium / Orientation: alert Psych mental status grossly normal Skin General Skin Exam: Negative for jaundice or pallor MDM MDM MDM Narrative Medical decision making narrative: I did lab work from the patient as she does appear to be confused. Her CBC shows no leukocytosis. Hemoglobin is stable at 9.7. Platelets are normal at 381. Patient is slightly hyponatremic with a sodium 125. Her creatinine is elevated at 1.18. Patient was given IV fluids. LFTs are elevated but are lower than they were previously. EtOH is negative. Urine drug screen is negative. Ammonia level within normal limits. EKG is sinus rhythm with a ventricular rate of 92 bpm without sign of ischemic change. There is a first-degree AV block noted. High-sensitivity troponin is 5. I spoke with her significant other on the phone who states that his initial concern was that she was overmedicating with pills. When I asked him which pills he thought she was overmedicating with he stated he does not know he does not take her medications. He states he she was try to give him a pill this morning and a nutrition drink which she does not take. He states that she was getting upset a lot and has been worried about her kids and her family. He states that when he asked her questions or try to talk with her she did not make sense with her answers. He states she is normally alert and oriented x3. He states that 1 other time previously she was confused and he states that she might have dementia while she was in the hospital for her previous bowel surgery. She is not on anything that he knows of for dementia. He states that she does take the same sleep pill exam and it starts with a A however he does not know the name of it and his sleep medication is missing. He is sure it is not Ambien. The patient's boyfriend called back and stated that he remember the drug and that his amitriptyline. He states she is prescribed 150 mg p.o. nightly for sleep. He states the bottle was last filled on 10/04/2021. There was 90 pills in the bottle and there is one left. He states he was able to find his bottle. He also has concern that she has been taking too many muscle relaxers and she is prescribed methocarbamol 500 mg p.o. 2 tabs p.o. twice daily. He states that there is one left this bottle as well. He states he cannot find the date it was prescribed on the bottle. I did inform him that she does not want to stay in the hospital and he told me that he cannot come pick her up because he has been drinking today. He states that her son does not drive and the only person that can help is his father who lives in [place] and he does not want to call her. He subsequently called back and spoke with nursing and stated that he wanted her to be transferred to [facility] because that is the only doctor she trusts. Nursing staff did explain to him that he would have to come pick her up and sign her out as well as take responsibility for her if he wanted to take her to [facility]. He told nursing that he would be on his way. Based on what he is telling me it does appear that polypharmacy is likely. She did not test positive for opioids today and she tells me she took a Percocet about 3 hours ago. Her boyfriend told me he gave her 2 methocarbamol's earlier today. He states that her amitriptyline is empty however when I asked her about it she states that she keeps them in separate bottles that she can take them if she needs it. Other than some mild hyponatremia and chloride being low does not seem like she needs to be admitted to the hospital. She states she called her friend who is coming to pick her up. Her boyfriend is also on the way up as well. Impression: 1. Confusion 2. Polypharmacy 3. hyponatremia Lab Data Attestation: I reviewed the patient's lab results. Labs: Laboratory Results - last 24 hr 12/18/21 12/18/21 12/18/21 11:40 11:40 12:13 WBC 9.7 RBC 3.53 L Hgb 9.7 L Hct 30.4 L MCV 86.1 MCH 27.5 MCHC 31.9 L RDW Std Deviation 59.1 H RDW Coeff of Thanh 18.8 H Plt Count 381 MPV 9.1 Immature Gran % (Auto) 0.600 Neut % (Auto) 78.8 H Lymph % (Auto) 12.9 L Mcmullen % (Auto) 5.9 Eos % (Auto) 1.3 Baso % (Auto) 0.5 Absolute Neuts (auto) 7.7 Absolute Lymphs (auto) 1.26 Nucleated RBC % 0 Sodium Potassium Chloride Carbon Dioxide Anion Gap BUN Creatinine Estim Creat Clear Calc Est GFR (MDRD) Af Amer Est GFR (MDRD) Non-Af BUN/Creatinine Ratio Glucose Calcium Total Bilirubin AST ALT Alkaline Phosphatase Ammonia Troponin I High Sens Total Protein Albumin Globulin Albumin/Globulin Ratio Urine Color Yellow Urine Clarity Clear Urine pH 6.0 Ur Specific Nye 1.010 Urine Protein Negative Urine Glucose (UA) 100 H Urine Ketones Negative Urine Occult Blood 150 H Urine Nitrite Negative Urine Bilirubin Negative Urine Urobilinogen Normal Ur Leukocyte Esterase 100 H Urine RBC 0 SEEN Urine WBC 0 SEEN Ur Squamous Epith Cells 0-5 SEEN Urine Bacteria 0 SEEN Urine Mucus 0 SEEN Urine Opiates Screen NEGATIVE Urine Methadone Screen NEGATIVE Ur Barbiturates Screen NEGATIVE Ur Phencyclidine Scrn NEGATIVE Ur Amphetamines Screen NEGATIVE MDMA (Ecstasy) Screen NEGATIVE U Benzodiazepines Scrn NEGATIVE Urine Cocaine Screen NEGATIVE U Cannabinoids Screen NEGATIVE Ur Drug Screen Comment Ethyl Alcohol 12/18/21 12/18/21 12/18/21 12:13 12:13 12:13 WBC RBC Hgb Hct MCV MCH MCHC RDW Std Deviation RDW Coeff of Thanh Plt Count MPV Immature Gran % (Auto) Neut % (Auto) Lymph % (Auto) Mcmullen % (Auto) Eos % (Auto) Baso % (Auto) Absolute Neuts (auto) Absolute Lymphs (auto) Nucleated RBC % Sodium 125 L Potassium 4.6 Chloride 91 L Carbon Dioxide 25.0 Anion Gap 9 BUN 17 Creatinine 1.18 H Estim Creat Clear Calc 40.89 Est GFR (MDRD) Af Amer 60 Est GFR (MDRD) Non-Af 49 L BUN/Creatinine Ratio 14.4 Glucose 138 H Calcium 9.8 Total Bilirubin 0.70 AST 90 H ALT 86 H Alkaline Phosphatase 417 H Ammonia 26.0 Troponin I High Sens 5 Total Protein 9.6 H Albumin 3.9 Globulin 5.7 H Albumin/Globulin Ratio 0.7 L Urine Color Urine Clarity Urine pH Ur Specific Nye Urine Protein Urine Glucose (UA) Urine Ketones Urine Occult Blood Urine Nitrite Urine Bilirubin Urine Urobilinogen Ur Leukocyte Esterase Urine RBC Urine WBC Ur Squamous Epith Cells Urine Bacteria Urine Mucus Urine Opiates Screen Urine Methadone Screen Ur Barbiturates Screen Ur Phencyclidine Scrn Ur Amphetamines Screen MDMA (Ecstasy) Screen U Benzodiazepines Scrn Urine Cocaine Screen U Cannabinoids Screen Ur Drug Screen Comment Ethyl Alcohol < 3.0 Radiography Diagnostic Testing: Clinical Impression(s) from Imaging Studies Brain CT 12/18/21 11:41 IMPRESSION: No acute intracranial finding. MRI may be obtained if clinically indicated. Electronically Signed: Mick Barrientos MD at 13:02 EDT Reading Location ID and State: [address] [place] [address] Tel , Service support , Chest X-Ray 12/18/21 12:30 IMPRESSION: No acute cardiopulmonary process. Electronically Signed: Mick Barrientos MD at 13:05 EDT Reading Location ID and State: [facility] / [place] Tel , Service support , Discharge Plan Triage Chief Complaint: Alt LOC ED Provider: Tai Vogel Dx/Rx/DC Orders Instructions: ED ALOC, ED Renal Insufficiency Prescriptions: No Action allopurinol 100 mg tablet 100 mg PO DAILY levothyroxine 50 mcg tablet 50 mcg PO DAILY metoprolol tartrate 50 mg tablet 25 mg PO BID lisinopril 40 mg tablet 40 mg PO DAILY fluconazole 100 mg tablet 100 mg PO DAILY ondansetron HCl 4 mg tablet 4 mg PO Q8 PRN (Reason: Nausea) ciprofloxacin HCl 500 mg tablet 500 mg PO DAILY oxycodone 10 mg tablet 10 mg PO Q6H Primary Care Provider: Scarlett Chen Referrals: Scarlett Chen, DO [Primary Care Provider] - Disposition Disposition: Home, Self Care
--- NOTE | 2021-12-18 11:46 | NURSING ---
NO OLD EKGS
[2021-12-18 11:50] LABS: Bacteria 0 SEEN /hpf (None Seen); Mucous, Urine 0 SEEN /hpf (<or=2+); Red Blood Cells-Urine 0 SEEN /hpf (0-5); White Blood Cells 0 SEEN /hpf (0-5)
[2021-12-18 11:56] LABS: Color, Urine Yellow (Yellow); Glucose, Dipstick 100 mg/dl (Normal); Ketone-Dipstick Negative (Negative); Leukocyte Esterase-Dipstick 100 /ul (Negative); Nitrite-Dipstick Negative (Negative); Occult Blood-Urine 150 /ul (Negative); Protein-Dipstick Negative (Negative); Urine Bilirubin Dipstick Negative (Negative); Urine Clarity Clear (Clear); Urine Urobilinogen Normal (Normal)
[2021-12-18 11:58] LABS: Squamous Epithelial Cells - UA 0-5 SEEN /hpf (5-10)
[2021-12-18 12:02] LABS: Amphetamine Urine VISTA NEGATIVE (<1000 ng/mL); Barbiturate Urine VISTA NEGATIVE (< 200 ng/mL); Benzodiazepine Urine VISTA NEGATIVE (< 200 ng/mL); Cocaine Urine VISTA NEGATIVE (< 300 ng/mL); Ecstacy Urine VISTA NEGATIVE (< 500 ng/mL); Methadone Urine VISTA NEGATIVE (< 300 ng/mL); PCP Urine VISTA NEGATIVE (< 25 ng/mL); THC Urine VISTA NEGATIVE (< 50 ng/mL); Vista UDS pH Range 5
[2021-12-18 12:23] LABS: Absolute Lymphocyte Count 1.26 X10^3/uL (0.83-4.51); Absolute Neutrophil Count 7.7 X10^3/uL (2.0-7.7); Basophil# 0.05 X10^3/uL; Basophil% 0.5 % (0-1); Eosinophil# 0.13 X10^3/uL; Eosinophils% 1.3 % (0-5); Hematocrit 30.4 % (37-47); Hemoglobin 9.7 g/dL (12.0-15.0); Lymphocyte # 1.26 X10^3/ul (0.83-4.51); Lymphocyte % 12.9 % (19-41); Mean Corp Hgb Conc 31.9 g/dL (32-36); Mean Corpuscular Hgb 27.5 pg (27.0-32.0); Mean Corpuscular Volume 86.1 fL (81-99); Mean Platelet Vol. 9.1 fl (6.2-12.0); Monocyte# 0.57 X10^3/uL; Monocyte% 5.9 % (0-10); NRBC Flagged by Analyzer 0 % (0-5); Neutrophil # 7.67 X10^3/uL (2.7-7.7); Neutrophil % 78.8 % (47-70); Platelet Count 381 K/mm3 (150-450); RBC Distribution Width CV 18.8 % (11.6-14.6); RBC Distribution Width SD 59.1 fl (35.1-43.9); Red Blood Count 3.53 M/mm3 (4.2-5.4); White Blood Count 9.7 K/mm3 (4.4-11.0)
--- NOTE | 2021-12-18 12:30 | RAD_ITS ---
STUDY: X-RAY CHEST REASON FOR EXAM: Female, 61 years old. ams TECHNIQUE: 1 view COMPARISON: 12/11/2020 FINDINGS: Cardiomediastinal silhouette is unremarkable. Costophrenic angles are sharp. Calcified granuloma in the lingula with surrounding linear scars. Lungs are otherwise clear. The trachea is midline. There is no pneumothorax. Multilevel thoracic spondylosis noted. RAD/Chest 1 View (Portable) IMPRESSION: No acute cardiopulmonary process. Electronically Signed: Mick Barrientos MD at 13:05 EDT ,
[2021-12-18 12:41] LABS: ALB/GLOB Ratio 0.7 RATIO (0.9-2.4); AST(SGOT) 90 U/L (15-37); Alanine Aminotransfer ALT/SGPT 86 U/L (13-56); Albumin, Serum 3.9 g/dL (3.2-5.0); Alcohol, Blood (Medical)-Serum < 3.0 mg/dL; Alkaline Phosphatase 417 U/L (45-117); Anion Gap 9 (5-15); BUN 17 mg/dL (7-18); BUN/Creat Ratio 14.4 RATIO (10-20); Calcium,Total 9.8 mg/dL (8.5-10.1); Chloride 91 mmol/L (98-107); Creatinine, Serum 1.18 mg/dL (0.55-1.02); EST Glomerular Filtration Rate 49 mL/min (>60); Est Glom Filt Rate - Afr Amer 60 mL/min (>60); Estimated Creatinine Clearance 40.89 ml/min; Globulin 5.7 g/dL (2.2-4.2); Glucose 138 mg/dL (74-106); Potassium 4.6 mmol/L (3.5-5.1); Protein, Total 9.6 g/dL (6.4-8.2); Sodium Level 125 mmol/L (136-145); Troponin-I HS 5 pg/mL (3.0-54.0)
--- NOTE | 2021-12-18 12:45 | ED.RN ---
PT CONTINUES TO CONVERSE WITH INAPPROPRIATE STATEMENTS, I START MY OWN IV'S AT HOME, ADELINA STICKS NEEDLES IN ME AND THE KIDS, HE'S GOOD AT IT
[2021-12-18] MEDS: 0.9% Normal Saline 1,000 ML 999 ML IV (13:09)
[2021-12-18 13:58] VITALS: BP 145/79; PULSE 90; RESP 16; O2SAT 98
--- NOTE | 2021-12-18 15:18 | ED.RN ---
PT NOW ORIENTED X3. FRIEND AT BEDSIDE TO GIVE PT RIDE HOME. FRIEND STATES PT HAS HAD INTERMITTENT EPISODES OF CONFUSION IN PAST.
== END 2021-12-18 15:20 | disposition home or self-care (01) ==
PROVIDERS: Emergency Provider Student in an Organized Health Care Education/Training Program; PCP Internal Medicine; Visit Provider Student in an Organized Health Care Education/Training Program
DX: R41.0 Disorientation, unspecified (principal); Z93.2 Ileostomy status; E87.1 Hypo-osmolality and hyponatremia; I10 Essential (primary) hypertension; E03.9 Hypothyroidism, unspecified; M10.9 Gout, unspecified; Z79.899 Other long term (current) drug therapy; Z87.891 Personal history of nicotine dependence
CPT/HCPCS: 70450; 71045; 80053; 80307; 81001; 82077; 82140; 84484; 85025; 93005; 96360; 96361; 99285; A4216

== ENCOUNTER 2022-09-07 21:22 | Emergency (ER) | payer MEDICARE, SELFPAY ==
[2022-09-07 21:23] VITALS: BP 180/90; PULSE 94; RESP 15; TEMP 36.8; O2SAT 97; BMI 27.3
[2022-09-07 21:39] VITALS: O2SAT 98
--- NOTE | 2022-09-07 21:58 | CT_ITS ---
INDICATION: Abdominal pain. EXAMINATION: CT ABDOMEN AND PELVIS WITH CONTRAST - CT Abdomen And Pelvis W/ Contrast Injection TECHNIQUE: Helically acquired images were obtained of the abdomen and pelvis following IV contrast. A radiation dose optimization technique was used for this scan. IV Contrast dosage and agent: 100 mL of Isovue 370 Oral contrast: None. COMPARISON: None. FINDINGS: LOWER CHEST: Lung bases are clear. No cardiomegaly or pericardial effusion. LIVER: Homogeneous. No focal mass. GALLBLADDER AND BILIARY TREE: No calcified gallstones. No gallbladder distension or wall edema. No intra- or extrahepatic biliary ductal dilation. PANCREAS: No focal cystic or solid mass. SPLEEN: Normal size without focal cystic or solid mass. ADRENAL GLANDS: No nodules. KIDNEYS AND URETERS: Normal renal size and position. No hydronephrosis. Normal visualized ureters. PERITONEUM: No ascites or free air. No other fluid collection. BOWEL: Normal stomach a dilated fluid-filled loops of small bowel throughout the abdomen. This extends into a large umbilical hernia. Small mall then exits this hernia and extends outward through a hernia between the right rectus abdominis and oblique musculature. The small bowel and exiting from this hernia is of normal diameter. There is a surgical anastomosis of the small bowel to the remaining colon just within the abdominal confines. LYMPH NODES: No enlarged mesenteric or retroperitoneal lymph nodes. VESSELS: Normal abdominal aorta. Normal IVC. URINARY BLADDER: Unremarkable. REPRODUCTIVE ORGANS: Large calcified fibroid uterus which is otherwise unremarkable. Normal adnexa. ABDOMINAL WALL: 2 large abdominal hernia, as above. BONES: No lytic or blastic abnormality. CT/Abdomen/Pelvis W IV Cont ONLY IMPRESSION: 1. 2 large adjacent ventral hernias containing small bowel without obstruction. 2. Interval partial colectomy. 3. No other major interval change. Electronically Signed: Cuba Dimas DO at 23:45 EDT Reading Location ID and State: [facility] / [place] Tel [phone], Service support ,
[2022-09-07] MEDS: Ondansetron 4 MG/2 ML Vial IV (22:10)
[2022-09-07] MEDS: HYDROmorphone 1 MG/ML Syringe IV (22:10)
[2022-09-07] MEDS: 0.9% Normal Saline 1,000 ML 1000 ML IV (22:11)
--- NOTE | 2022-09-07 22:11 | EDS_ITS ---
HPI HPI - GI History of Present Illness Chief Complaint: Abd Pain Narrative Narrative: 61-year-old female presenting with nausea, vomiting, diarrhea. She states that this started yesterday. She is not having abdominal pain. [facility] Medical History Gout HTN (hypertension) Hypothyroidism Ileostomy in place Home Medications allopurinol 100 mg tablet 100 mg PO DAILY 12/10/20 [History Last Taken Unknown] levothyroxine 50 mcg tablet 50 mcg PO DAILY 12/10/20 [History Last Taken Unknown] lisinopril 40 mg tablet 40 mg PO DAILY 12/10/20 [History Last Taken Unknown] metoprolol tartrate 50 mg tablet 25 mg PO BID 12/10/20 [History Last Taken Unknown] oxycodone 10 mg tablet 10 mg PO Q6H 01/08/21 [History Last Taken Unknown] aspirin 81 mg tablet 81 mg PO DAILY 09/07/22 [History Last Taken Unknown] omeprazole magnesium 20 mg tablet,delayed release (Prilosec OTC) 20 mg PO DAILY 09/07/22 [History Last Taken Unknown] ondansetron 4 mg disintegrating tablet 4 mg PO Q8H PRN PRN nausea and vomiting #14 tabs 09/08/22 [Rx Last Taken Unknown] promethazine 25 mg tablet 25 mg PO TID PRN nausea and vomiting #14 tabs 09/08/22 [Rx Last Taken Unknown] Allergy/AdvReac Type Severity Reaction Status Date / Time prednisone Allergy Other Verified 12/18/21 11:37 sulfamethoxazole AdvReac Upset Verified 12/18/21 11:37 [From Bactrim] Stomach trimethoprim [From Bactrim] AdvReac Upset Verified 12/18/21 11:37 Stomach Surgical History History of History of tonsillectomy History of tubal ligation Social History Smoking Status: Former smoker EXAM Physical Exam Const Vital Signs: 09/07/22 21:23 09/07/22 21:39 09/08/22 00:05 Temperature 98.2 F 98.3 F Temperature Source Temporal Temporal Pulse Rate 94 98 Respiratory Rate 15 18 Blood Pressure 180/90 H 190/94 H Blood Pressure Mean 120 126 Pulse Ox 97 98 99 Oxygen Delivery Method Room Air Room Air MDM MDM MDM Narrative Medical decision making narrative: 61-year-old female presenting with nausea, vomiting, abdominal pain. 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 This was performed at [facility]. Her surgeon was Dr. Samuels. She states that since she has had the surgery she developed a large internal hernia. She states this is not new. She states that since has been vomiting more and having diarrhea she thinks that it hurts worse. Differential includes but is not limited to GERD, gastritis, peptic ulcer disease, acute cholecystitis, acute cholelithiasis, appendicitis, diverticulitis, pancreatitis, small bowel obstruction, perforated bowel, viral syndrome, C. difficile colitis, incarcerated or strangulated hernia. Patient medicated with 1 mg of Dilaudid and 4 mg of Zofran. He is given a liter normal saline. On exam she does have a large right-sided ventral hernia. She does not have an acute abdomen. CBC to assess white blood cell count, hemoglobin, platelets, differential. CMP to assess liver function, renal function, glucose, anion gap, electrolytes. Lipase to assess for pancreatitis. I did order stool for C. difficile chest she has a history of is having more diarrhea than usual. CBC shows a leukocytosis of 17.6. Hemoglobin stable at 10.6. Platelets normal at 439. Renal function is normal. Potassium slightly elevated at 5.6 with moderate hemolysis. Sodium slightly low at 124 but she was given a liter of normal saline. She has a history of hyponatremia which is been far lower. Alkaline phosphatase elevated at 495, ALT 42, AST 67. Bilirubin normal. Lipase negative. Patient requested a second dose of Dilaudid and more nausea medicine and she is given Reglan. She still has not provided a stool sample. CT of the abdomen pelvis with IV contrast shows 2 large ventral hernias adjacent to each other without evidence of obstruction, incarceration, strangulation. There is no evidence of colitis on her CT read. She was concerned she might have C. difficile but but again she cannot provide a sample of stool. She does have a leukocytosis however. I have not found a source for her. Patient not have any urinary symptoms. No cough or shortness of breath. Her vital signs are stable and she is actually hypertensive not hypotensive. I think the patient would benefit from outpatient antiemetics. Return precautions were discussed. I did recommend that she follow-up with her previous surgeon for her hernia repair is that he has extensive abdominal surgery history. She is knowledge understanding. Impression: 1. Nausea/vomiting 2. Diarrhea 3. Abdominal pain 4. Ventral hernias Lab Data Labs: Laboratory Results - last 24 hr 09/07/22 09/07/22 21:50 21:50 WBC 17.6 H RBC 4.28 Hgb 10.6 L Hct 34.3 L MCV 80.1 L MCH 24.8 L MCHC 30.9 L RDW Std Deviation 58.1 H RDW Coeff of Thanh 20.3 H Plt Count 439 MPV 10.6 Immature Gran % (Auto) 0.400 Neut % (Auto) 89.6 H Lymph % (Auto) 6.2 L [place] % (Auto) 3.2 Eos % (Auto) 0.2 Baso % (Auto) 0.4 Absolute Neuts (auto) 15.8 H Absolute Lymphs (auto) 1.09 Nucleated RBC % 0 Differential Comment SCANNED Hypochromasia 1+ Anisocytosis 2+ Ovalocytes 1+ Sodium 124 L Potassium 5.6 H Chloride 95 L Carbon Dioxide 21.0 Anion Gap 8 BUN 10 Creatinine 0.76 Estim Creat Clear Calc 63.49 Est GFR (MDRD) Af Amer 99 Est GFR (MDRD) Non-Af 82 BUN/Creatinine Ratio 13.1 Glucose 153 H Calcium 9.9 Total Bilirubin 0.70 AST 67 H ALT 42 Alkaline Phosphatase 495 H Total Protein 9.8 H Albumin 3.6 Globulin 6.2 H Albumin/Globulin Ratio 0.6 L Lipase 94 Radiography Diagnostic Testing: Clinical Impression(s) from Imaging Studies Abdomen/Pelvis CT 09/07/22 21:58 IMPRESSION: 1. 2 large adjacent ventral hernias containing small bowel without obstruction. 2. Interval partial colectomy. 3. No other major interval change. Electronically Signed: Cuba Dimas DO at 23:45 EDT Reading Location ID and State: [facility] / [place] Tel [phone], Service support , Discharge Plan Triage Chief Complaint: Abd Pain ED Provider: Jaspreet,Tai Dx/Rx/DC Orders Instructions: ED Diet Vomiting Diarrhea, ED Hernia (Adult), ED Vomiting (Adult) Prescriptions: New promethazine 25 mg tablet 25 mg PO TID PRN (Reason: nausea and vomiting) Qty: 14 0RF ondansetron 4 mg tablet,disintegrating 4 mg PO Q8H PRN PRN (Reason: nausea and vomiting) Qty: 14 0RF No Action allopurinol 100 mg tablet 100 mg PO DAILY levothyroxine 50 mcg tablet 50 mcg PO DAILY metoprolol tartrate 50 mg tablet 25 mg PO BID lisinopril 40 mg tablet 40 mg PO DAILY oxycodone 10 mg tablet 10 mg PO Q6H aspirin 81 mg Tablet 81 mg PO DAILY omeprazole magnesium [Prilosec OTC] 20 mg Tablet,Delayed Release (Dr/Ec) 20 mg PO DAILY Primary Care Provider: Scarlett Chen Referrals: Scarlett Chen DO [Primary Care Provider] - Disposition Disposition: Home, Self Care
[2022-09-07 22:30] LABS: Absolute Lymphocyte Count 1.09 X10^3/uL (0.83-4.51); Absolute Neutrophil Count 15.8 X10^3/uL (2.0-7.7); Basophil# 0.07 X10^3/uL; Basophil% 0.4 % (0-1); Eosinophil# 0.04 X10^3/uL; Eosinophils% 0.2 % (0-5); Hematocrit 34.3 % (37-47); Hemoglobin 10.6 g/dL (12.0-15.0); Lymphocyte # 1.09 X10^3/ul (0.83-4.51); Lymphocyte % 6.2 % (19-41); Mean Corp Hgb Conc 30.9 g/dL (32-36); Mean Corpuscular Hgb 24.8 pg (27.0-32.0); Mean Corpuscular Volume 80.1 fL (81-99); Mean Platelet Vol. 10.6 fl (6.2-12.0); Monocyte# 0.57 X10^3/uL; Monocyte% 3.2 % (0-10); NRBC Flagged by Analyzer 0 % (0-5); Neutrophil # 15.77 X10^3/uL (2.7-7.7); Neutrophil % 89.6 % (47-70); POSITIVE MORPHOLOGY YES; Platelet Count 439 K/mm3 (150-450); RBC Distribution Width CV 20.3 % (11.6-14.6); RBC Distribution Width SD 58.1 fl (35.1-43.9); Red Blood Count 4.28 M/mm3 (4.2-5.4); White Blood Count 17.6 K/mm3 (4.4-11.0)
[2022-09-07 22:41] LABS: Differential Indicated SCAN CRITERIA MET
[2022-09-07 22:59] LABS: ALB/GLOB Ratio 0.6 RATIO (0.9-2.4); AST(SGOT) 67 U/L (15-37); Alanine Aminotransfer ALT/SGPT 42 U/L (13-56); Albumin, Serum 3.6 g/dL (3.2-5.0); Alkaline Phosphatase 495 U/L (45-117); Anion Gap 8 (5-15); Anisocytosis 2+; BUN 10 mg/dL (7-18); BUN/Creat Ratio 13.1 RATIO (10-20); Calcium,Total 9.9 mg/dL (8.5-10.1); Chloride 95 mmol/L (98-107); Creatinine, Serum 0.76 mg/dL (0.55-1.02); EST Glomerular Filtration Rate 82 mL/min (>60); Est Glom Filt Rate - Afr Amer 99 mL/min (>60); Estimated Creatinine Clearance 63.49 ml/min; Globulin 6.2 g/dL (2.2-4.2); Glucose 153 mg/dL (74-106); Lipase 94 U/L (73-393); Potassium 5.6 mmol/L (3.5-5.1); Protein, Total 9.8 g/dL (6.4-8.2); Sodium Level 124 mmol/L (136-145)
[2022-09-07 23:00] LABS: Hypochromasia 1+; Ovalocyte 1+
[2022-09-07 23:01] LABS: Differential Comment SCANNED
[2022-09-07] MEDS: Metoclopramide 10 MG/2 ML Vial IV (23:48)
[2022-09-07] MEDS: HYDROmorphone 0.5 MG/0.5 ML SYRINGE IV (23:48)
[2022-09-08] VITALS (27 sets, daily range): BP systolic 56–192; BP diastolic 27–104; PULSE 30–153; RESP 14–44; TEMP 36.1–37.2; O2SAT 85–100
[2022-09-08] MEDS: proMETHazine 25 MG/ML Syringe 12.5 MG IM (00:58)
--- NOTE | 2022-09-08 01:52 | ED.RN ---
0130: Patient up for discharge. Continues to c/o N/V and abdominal pain. States that she is not comfortable going home with her current pain and continued vomiting. Dr. Lara notified
[2022-09-08] MEDS: LORazepam 2 MG/ML Syringe 0.5 MG IV (02:51)
[2022-09-08] MEDS: Famotidine 200 MG/20 ML MDV 20 MG in 0.9% Normal Saline (Pres. free 8 ML 300 MG IV (02:51)
--- NOTE | 2022-09-08 04:55 | ED.RN ---
This RN walked into pt room and found pt on BSC, IV found on floor. Pt is pale and mumbling words. Placed pt back into bed. Pt lethargic but will answer questions. Dr. Lara notified. New IV access established and 1000 mL bolus given. Pt placed on monitor.
[2022-09-08] MEDS: 0.9% Normal Saline 1,000 ML 1000 ML IV ×2 (05:00→07:12)
[2022-09-08 05:28] LABS: Hematocrit 42.1 % (37-47); Mean Corp Hgb Conc 28.5 g/dL (32-36); Mean Corpuscular Hgb 24.8 pg (27.0-32.0); Mean Corpuscular Volume 87.2 fL (81-99); Mean Platelet Vol. 9.8 fl (6.2-12.0); NRBC Flagged by Analyzer 0 % (0-5); POSITIVE DIFFERENTIAL YES; POSITIVE MORPHOLOGY YES; Platelet Count 513 K/mm3 (150-450); RBC Distribution Width CV 20.6 % (11.6-14.6); Red Blood Count 4.83 M/mm3 (4.2-5.4); White Blood Count 19.9 K/mm3 (4.4-11.0)
--- NOTE | 2022-09-08 06:02 | HP.PCM_ITS ---
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 Patient reports her abdominal pain as generalized and rates it 10 out of 10, more severe with any palpation attempts. Significant other who is present reports that he is seeing her loose stools over the last 24 hours and there is been no blood evident and its not been black in appearance. Her significant other with whom she lives has not been ill himself. Work-up in the ED included T98.2, heart rate 94--> 123, BP 180/90--> BP dropped to 71/52, respiratory rate 15-->36, 98% on room air, CBC with WBC 17.6, hemoglobin 10.6, MCV 80.1, platelet 439 with left shift, CMP with sodium 124, potassium 5.6 however moderately hemolyzed, chloride 95, BUN/creatinine 10/0.76, glucose 153, hepatic profile with AST/ALT 67/42, alk phos 495 otherwise not marked appearing, lipase 94, CT abdomen pelvis with 2 large adjacent ventral hernias containing small bowel with no evidence of any obstruction, evidence status post partial colectomy with no acute intra- abdominal findings. In the ED patient administered Zofran 4 mg IV x1, Reglan 10 mg IV x1, Phenergan 12.5 mg IM x1, as well as Dilaudid 0.5 mg IV x1 and a follow-up 1 mg IV x1 in addition to a normal saline 1 L bolus with then onset hypotension with BP 71/52 with BP upon evaluation in the ED with IV fluid bolus running systolic in the 94 range with MAP just below 65. [facility] Medical History Gout History of ischemic bowel disease HTN (hypertension) Hypothyroidism Ileostomy in place Tobacco use Home Medications allopurinol 100 mg tablet 100 mg PO DAILY 12/10/20 [History Last Taken Unknown] levothyroxine 50 mcg tablet 50 mcg PO DAILY 12/10/20 [History Last Taken Unknown] lisinopril 40 mg tablet 40 mg PO DAILY 12/10/20 [History Last Taken Unknown] metoprolol tartrate 50 mg tablet 25 mg PO BID 12/10/20 [History Last Taken Unknown] oxycodone 10 mg tablet 10 mg PO Q6H 01/08/21 [History Last Taken Unknown] aspirin 81 mg tablet 81 mg PO DAILY 09/07/22 [History Last Taken Unknown] omeprazole magnesium 20 mg tablet,delayed release (Prilosec OTC) 20 mg PO DAILY 09/07/22 [History Last Taken Unknown] ondansetron 4 mg disintegrating tablet 4 mg PO Q8H PRN PRN nausea and vomiting #14 tabs 09/08/22 [Rx Last Taken Unknown] promethazine 25 mg tablet 25 mg PO TID PRN nausea and vomiting #14 tabs 09/08/22 [Rx Last Taken Unknown] Allergy/AdvReac Type Severity Reaction Status Date / Time prednisone Allergy Other Verified 12/18/21 11:37 sulfamethoxazole AdvReac Upset Verified 12/18/21 11:37 [From Bactrim] Stomach trimethoprim [From Bactrim] AdvReac Upset Verified 12/18/21 11:37 Stomach Family History (Updated 09/08/22 @ 06:[address] Krystina Nicholas MD) Mother Heart disease other (Denies any marked paternal family history including HD, DM, CA.) Surgical History (Updated 09/08/22 @ 02:[address] Krystina Nicholas MD) History of History of tonsillectomy History of tubal ligation Hx of ileostomy S/P partial colectomy Social History (Updated 09/08/22 @ 06:[address] Krystina Nicholas MD) household members: spouse Smoking Status: Current some day smoker tobacco type: cigarettes alcohol intake: never substance use type: does not use ROS ROS Narrative Admission Review of Systems: CONSTITUTIONAL: No weight loss, fever, chills, + weakness or fatigue. HEENT: Eyes: No visual loss, blurred vision, double vision or yellow sclerae. Ears, Nose, Throat: No hearing loss, sneezing, congestion, runny nose or sore throat. SKIN: No rash or itching, lesions, wounds. CARDIOVASCULAR: No chest pain, chest pressure or chest discomfort, palpitations, edema, orthopnea, syncopal events. RESPIRATORY: No shortness of breath, cough or sputum, wheezing, hemoptysis. GASTROINTESTINAL: + anorexia, nausea, vomiting, diarrhea, diffuse abdominal pain, transient bright red blood per rectum which is since resolved noted 2 days prior, no melena. GENITOURINARY: No dysuria, frequency, urgency or retention. NEUROLOGICAL: No headache, dizziness, syncope, paralysis, ataxia, numbness or tingling in the extremities, focal weakness, change in bowel or bladder control, seizure. MUSCULOSKELETAL: + muscle, back pain, joint pain or stiffness. HEMATOLOGIC: + anemia, bleeding or bruising. LYMPHATICS: No enlarged nodes. No history of splenectomy. PSYCHIATRIC: No history of depression or anxiety. ENDOCRINOLOGIC: No reports of sweating, cold or heat intolerance. No polyuria or polydipsia. ALLERGIES: No history of asthma, hives, eczema or rhinitis. Vital Signs Vital Signs Vital Signs: 09/07/22 21:23 09/07/22 21:39 09/08/22 00:05 Temperature 98.2 F 98.3 F Temperature Source Temporal Temporal Pulse Rate 94 98 Respiratory Rate 15 18 Blood Pressure 180/90 H 190/94 H Blood Pressure Mean 120 126 Pulse Ox 97 98 99 Oxygen Delivery Method Room Air Room Air 09/08/22 01:00 09/08/22 04:52 Temperature 97.6 F L Temperature Source Temporal Pulse Rate 105 H 123 H Respiratory Rate 20 H 36 H Blood Pressure 192/104 H 71/52 L Blood Pressure Mean 133 58 Pulse Ox 100 Oxygen Delivery Method Room Air Room Air Weight Weight: 154 lb 5.177 oz Body Mass Index (BMI) 27.3 Physical Exam Narrative Physical Examination: General: Awakens to stimuli but very difficult, lethargic, intermittently alert, does answer orientation questions x3 once able to wake up more, following commands, laying in the ED bed, fatigued and severely ill-appearing, pale appearing. Skin: Pale color, normal turgor, no icterus, no cyanosis, occasional staged ecchymoses to the extremities. HEENT: AT/NC, EOMI, PERRLA, dry MM, no carotid bruits or JVD noted. Lungs: Mildly diminished, greater bases, appropriate effort, no rales, ronchi or wheezing. Heart: Tachycardic with regular rhythm; no gallop, rub audible. Abdomen: Soft, diffuse generalized discomfort with rebound and guarding, notable hernias, no obvious marked distention but difficult evaluation given severity of pain, difficult to assess HSM given pain also. Extremities: No cyanosis, clubbing, or edema. Neurological: Patient awake, alert, oriented as noted, cognitive function decreased given significant presentation currently with encephalopathy; pupils equally reactive to light and accommodation, cranial nerves grossly normal, moving all 4 extremities, no focal deficits, strength severely global decrease secondary to acute presentation. Psychiatric: Affect appears fatigued, ill-appearing, no acute evidence of depressive or anxiety feelings. Results Lab / Micro Data Result Diagrams: 09/07/22 21:50 09/07/22 21:50 Labs: Laboratory Results - last 24 hr 09/07/22 21:50: WBC 17.6 H, RBC 4.28, Hgb 10.6 L, Hct 34.3 L, MCV 80.1 L, MCH 24.8 L, MCHC 30.9 L, RDW Std Deviation 58.1 H, RDW Coeff of Thanh 20.3 H, Plt Count 439, MPV 10.6, Immature Gran % (Auto) 0.400, Neut % (Auto) 89.6 H, Lymph % (Auto) 6.2 L, [place] % (Auto) 3.2, Eos % (Auto) 0.2, Baso % (Auto) 0.4, Absolute Neuts (auto) 15.8 H, Absolute Lymphs (auto) 1.09, Nucleated RBC % 0, Differential Comment SCANNED, Hypochromasia 1+, Anisocytosis 2+, Ovalocytes 1+ 09/07/22 21:50: Sodium 124 L, Potassium 5.6 H, Chloride 95 L, Carbon Dioxide 21.0, Anion Gap 8, BUN 10, Creatinine 0.76, Estim Creat Clear Calc 63.49, Est GFR (MDRD) Af Amer 99, Est GFR (MDRD) Non-Af 82, BUN/Creatinine Ratio 13.1, Glucose 153 H, Calcium 9.9, Total Bilirubin 0.70, AST 67 H, ALT 42, Alkaline Phosphatase 495 H, Total Protein 9.8 H, Albumin 3.6, Globulin 6.2 H, Albumin/Globulin Ratio 0.6 L, Lipase 94 Radiology Impression Abdomen/Pelvis CT 09/07/22 21:58 IMPRESSION: 1. 2 large adjacent ventral hernias containing small bowel without obstruction. 2. Interval partial colectomy. 3. No other major interval change. 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 #1. N/V/D, Suspected Gastroenteritis, possibly viral component; however, cannot rule out GI bleed component or Acute Surgical abdomen although initial CT without acute findings complicated by history of partial colectomy secondary to history of ischemic bowel prior with Acute Hypotension: Upon evaluation discussed with ED physician and significant concerns given notable hypotension and intractable pain, stat hemoglobin pending and requested that lactic acid also be included, will need to assess how blood pressure does to also determine placement needs. If hemoglobin has notably dropped and there is a GI bleed component then would plan immediate consultation with gastroenterology, serial H&H's, n.p.o. status, IV PPI and likely admission to the ICU with Trouble Dispatcher consultation with potential initiation of zosyn pending c diff, stool cx with de-escalation of abx therapy if viral component with repeat CBC and CMP in a.m. with continued electrolyte deficiency supplementation; however, if hemoglobin is stable given severity of presentation and pain would request immediate stat consultation with general surgery in the emergency room to assure they do not think there is any surgical emergency and to assure she is appropriate for [facility] admission with similarly n.p.o. status, IV PPI, continued IV Zosyn pending stool cultures, as needed pain regimen, as needed antiemetic regimen. #2. Hyperglycemia: Admission glucose 153, no diabetic history, possibly stress response, hemoglobin A1c obtained to be cautious. #3. Chronic hyponatremia secondary to high ostomy output: Admission sodium 124, similar to previous, last noted 01/05 sodium 125, will judiciously hydrate and repeat CMP in AM. #4. Hypertension: Given low BP, giving fluids, holding HTN regimen, add once appropriate. #5. Hypothyroidism: We will continue patient on levothyroxine regimen. #6. Chronic anemia, usually normocytic, currently high and microcytic MCV: Admission hemoglobin 10.6, MCV 80.1, normally normocytic range however, baseline hemoglobin previously 9-11, last noted 12/18/2021 9.7, continue to trend. #7. Hyperkalemia, likely secondary to moderate hemolysis: Admission potassium noted to be 5.6 however this is moderately hemolyzed, will continue hydration and repeat CMP in AM. #8. Former tobacco use: Encourage continued tobacco cessation. #9. Gout: We will continue patient home allopurinol regimen. #10. GERD with incidentally noted ventral hernias: We will maintain on PPI as noted, CT abdomen pelvis with 2 large ventral hernias adjacent to each other with no evidence of any obstruction, encourage outpatient follow-up with her surgeon. #11. DVT prophylaxis: SCD given unclear if GI bleed as noted. #12. CODE status: Patient HCPOA and living will are not in place. Discussed CODE status at length including difference between FULL code, DNR-CCA and DNR-CC status. Following discussions about the differences in these status, requested Full Code. Admission Evaluation Time spent evaluating chart, patient history, patient evaluation, care planning and discussion with specialists: 75 minutes. Charges/Coding Visit Charges Inpatient E&M: 21789 Init Hosp L3
[2022-09-08 06:04] LABS: Magnesium 1.5 mg/dL (1.6-2.6); Phosphorus 5.8 mg/dL (2.5-4.9)
[2022-09-08 06:06] LABS: Differential Indicated SCAN CRITERIA MET
--- NOTE | 2022-09-08 06:31 | ED.RN ---
Multiple unsuccessful sticks for blood. Lab called for blood. Delay in antibiotics due to unable to obtain blood cultures.
[2022-09-08 06:36] LABS: Scan Smear per Review Criteria MANUAL DIFF
[2022-09-08 06:37] LABS: Total Cells Counted 100 (MANUAL DIFF)
[2022-09-08 06:40] LABS: Neutrophil-Band 6 % (0-5); Neutrophil-Segmented 71 % (47-70)
[2022-09-08 06:41] LABS: Eosinophil 4 % (0-5); Lymphocyte 13 % (19-41); Monocyte 6 % (0-10)
[2022-09-08] MEDS: fentaNYL 100 MCG/2 ML Ampul 50 MCG IV (06:49)
--- NOTE | 2022-09-08 07:12 | ED.RN ---
waiting administered atb, still in need of cx and lactic.
--- NOTE | 2022-09-08 07:29 | CON.PCM.SX_ITS ---
Assessment & Plan Assessment/Plan (1) Acute abdomen: PLAN: see below PLAN: Plan Patient with history of ischemic colon, s/p colon resection at another hospital She presents with acute abdomen, elevated WBC and findings of abdominal wall hernias on CT scan, however, her pain seems out of proportion to this I have recommended transfer to her tertiary hospital. HPI Consult Data Date of Consult: 09/08/22 HPI Narrative Reason for Consultation: Asked by Dr. Krystina Nicholas to evaluate patient with abdominal pain HPI Narrative: JOHNNA NORMAN, is a 61 F who presents with severe diffuse abdominal pain. She had presented about a year ago with ischemic colitis and underwent colon resection with ostomy. Takedown of ostomy was in February of 2022. She presents with severe abdominal pain diffuse and findings of ventral hernia, concerning for loss of domain. She also had an episode of hypotension in the ED, responding to fluids. PFSH Medical History Gout History of ischemic bowel disease HTN (hypertension) Hypothyroidism Ileostomy in place Tobacco use Home Medications allopurinol 100 mg tablet 100 mg PO DAILY 12/10/20 [History Last Taken Unknown] levothyroxine 50 mcg tablet 50 mcg PO DAILY 12/10/20 [History Last Taken Unknown] lisinopril 40 mg tablet 40 mg PO DAILY 12/10/20 [History Last Taken Unknown] metoprolol tartrate 50 mg tablet 25 mg PO BID 12/10/20 [History Last Taken Unknown] oxycodone 10 mg tablet 10 mg PO Q6H 01/08/21 [History Last Taken Unknown] aspirin 81 mg tablet 81 mg PO DAILY 09/07/22 [History Last Taken Unknown] omeprazole magnesium 20 mg tablet,delayed release (Prilosec OTC) 20 mg PO DAILY 09/07/22 [History Last Taken Unknown] ondansetron 4 mg disintegrating tablet 4 mg PO Q8H PRN PRN nausea and vomiting #14 tabs 09/08/22 [Rx Last Taken Unknown] promethazine 25 mg tablet 25 mg PO TID PRN nausea and vomiting #14 tabs 09/08/22 [Rx Last Taken Unknown] Allergy/AdvReac Type Severity Reaction Status Date / Time prednisone Allergy Other Verified 12/18/21 11:37 sulfamethoxazole AdvReac Upset Verified 12/18/21 11:37 [From Bactrim] Stomach trimethoprim [From Bactrim] AdvReac Upset Verified 12/18/21 11:37 Stomach Family History Mother Heart disease Family History other Surgical History History of History of tonsillectomy History of tubal ligation Hx of ileostomy S/P partial colectomy Social History household members: spouse Smoking Status: Current some day smoker tobacco type: cigarettes alcohol intake: never substance use type: does not use ROS ROS Narrative patient is lethargic and does not answer my questions Physical Exam Const Constitutional Narrative: lethargic, somewhat rousable to questions HEENT normocephalic Eyes conjunctivae normal Neck supple Resp normal respiratory effort Cardio Rate: tachycardic GI GI Narrative: diffuse abdominal tenderness, even to light touch, out of proportion to clinical findings Medical Records Data Attestation: I reviewed the patient's medical records Medical records narrative: I was not able to review records from [facility] Lab / Micro Data Attestation: I reviewed the patient's lab results. Result Diagrams: 09/08/22 05:22 09/08/22 11:35 Labs: Laboratory Results - last 24 hr 09/07/22 21:50: WBC 17.6 H, RBC 4.28, Hgb 10.6 L, Hct 34.3 L, MCV 80.1 L, MCH 24.8 L, MCHC 30.9 L, RDW Std Deviation 58.1 H, RDW Coeff of Thanh 20.3 H, Plt Count 439, MPV 10.6, Immature Gran % (Auto) 0.400, Neut % (Auto) 89.6 H, Lymph % (Auto) 6.2 L, [place] % (Auto) 3.2, Eos % (Auto) 0.2, Baso % (Auto) 0.4, Absolute Neuts (auto) 15.8 H, Absolute Lymphs (auto) 1.09, Nucleated RBC % 0, Differential Comment SCANNED, Hypochromasia 1+, Anisocytosis 2+, Ovalocytes 1+ 09/07/22 21:50: Sodium 124 L, Potassium 5.6 H, Chloride 95 L, Carbon Dioxide 21.0, Anion Gap 8, BUN 10, Creatinine 0.76, Estim Creat Clear Calc 63.49, Est GFR (MDRD) Af Amer 99, Est GFR (MDRD) Non-Af 82, BUN/Creatinine Ratio 13.1, Glucose 153 H, Calcium 9.9, Total Bilirubin 0.70, AST 67 H, ALT 42, Alkaline Phosphatase 495 H, Total Protein 9.8 H, Albumin 3.6, Globulin 6.2 H, Albumin/Globulin Ratio 0.6 L, Lipase 94 09/08/22 05:22: WBC 19.9 H, RBC 4.83, Hgb 12.0, Hct 42.1, MCV 87.2 D, MCH 24.8 L, MCHC 28.5 L D, RDW Std Deviation 64.0 H, RDW Coeff of Thanh 20.6 H, Plt Count 513 H, MPV 9.8, Immature Gran % (Auto) FLOOR INSTALLER, Neut % (Auto) FLOOR INSTALLER, Lymph % (Auto) FLOOR INSTALLER, [place] % (Auto) FLOOR INSTALLER, Eos % (Auto) FLOOR INSTALLER, Baso % (Auto) FLOOR INSTALLER, Absolute Neuts (auto) FLOOR INSTALLER, Absolute Lymphs (auto) FLOOR INSTALLER, Total Counted 100, Neutrophils % (Manual) 71 H, Band Neutrophils % 6 H, Lymphocytes % (Manual) 13 L, Monocytes % (Manual) 6, Eosinophils % (Manual) 4, Nucleated RBC % 0 09/08/22 05:22: Phosphorus 5.8 H, Magnesium 1.5 L Radiology Impression Abdomen/Pelvis CT 09/07/22 21:58 IMPRESSION: 1. 2 large adjacent ventral hernias containing small bowel without obstruction. 2. Interval partial colectomy. 3. No other major interval change. Electronically Signed: Cuba Dimas DO at 23:45 EDT Reading Location ID and State: [address] [place] [address] Tel [phone], Service support ,
[2022-09-08 08:15] LABS: Lactic Acid 8.6 mmol/L (0.4-1.9)
--- NOTE | 2022-09-08 08:38 | ED.RN ---
jodie elam emergency contact. [phone] no answer
--- NOTE | 2022-09-08 08:39 | ED.RN ---
attempted to call shani sanchez significant other, mail box is full. [phone]
[2022-09-08] MEDS: Hydrocortisone Sod Succinate 100 MG/2 ML Vial IV (08:45)
[2022-09-08] MEDS: 0.9% Normal Saline 1,000 ML 999 ML IV (09:55)
[2022-09-08] MEDS: Ondansetron 4 MG/2 ML Vial IV (10:47)
--- NOTE | 2022-09-08 11:08 | EKG12_ITS ---
Test Reason : CODE BLUE Blood Pressure : / mmHG Vent. Rate : 099 BPM Atrial Rate : 000 BPM P-R Int : 000 ms QRS Dur : 138 ms QT Int : 372 ms P-R-T Axes : 000 -47 088 degrees QTc Int : 477 ms Atrial fibrillation Left axis deviation Non-specific intra-ventricular conduction block Cannot rule out Septal infarct , age undetermined Abnormal ECG Confirmed by VERONIQUE CUEVAS, ELKIN ([id number]), assignment desk editor PORTIA DURAN ([id number]) on 09/11/2022 8:30:22 AM Referred By: LANEY Confirmed By:ELKIN PIPER MD
--- NOTE | 2022-09-08 11:10 | RAD_ITS ---
INDICATION: ett EXAMINATION/TECHNIQUE: X-RAY - XR Chest 1 View COMPARISON: 12/18/2021 12:36 PM. FINDINGS: LINES/DEVICES: Endotracheal tube tip projects 1.43 cm of the evelyn. Pull back and repositioning is suggested. LUNGS: There is a moderate lingular infiltrate new since the prior study. There is a small right lower lobe infiltrate new since the prior study. MEDIASTINUM AND CARDIOVASCULAR STRUCTURES: Cardiac silhouette not enlarged. Central airways and mediastinal contour are unremarkable. BONES AND SOFT TISSUES: Unremarkable. RAD/Chest 1 View (Portable) IMPRESSION: Endotracheal tube tip 1.43 cm above the eveyln. Recommend pullback of endotracheal tube and repeat chest x-ray. Bilateral infiltrates as above. Electronically Signed: Terrence Crump MD, GEMMA at 11:54 EDT ,
--- NOTE | 2022-09-08 11:18 | RAD_ITS ---
INDICATION: ETT AND OG/NG TUBE PLACEMENT -- #2 IMAGE EXAMINATION/TECHNIQUE: X-RAY - XR Chest 1 View COMPARISON: 09/08/2022 11:12 AM FINDINGS: LINES/DEVICES: Endotracheal tube tip projects 1.35 cm above the evelyn. Nasogastric tube has been placed the tip of which extends only approximately 2 cm below the left hemidiaphragm. LUNGS: There is moderate lingular infiltrate and small right lower lobe infiltrate. MEDIASTINUM AND CARDIOVASCULAR STRUCTURES: Cardiac silhouette not enlarged. Central airways and mediastinal contour are unremarkable. BONES AND SOFT TISSUES: Unremarkable. RAD/Chest 1 View (Portable) IMPRESSION: Nasogastric tube is barely below the left hemidiaphragm. Suggest advancing nasogastric tube. Endotracheal tube tip 1.35 cm above evelyn. Minimal pullback of endotracheal tube. Bilateral infiltrates as above. Electronically Signed: Terrence Crump MD, GEMMA at 11:58 EDT ,
--- NOTE | 2022-09-08 11:21 | CM.ED ---
Social Work Note Referral Source: [employer] Referral Reason: emotional support SW responded to [employer], no family present and medical staff at bed side. SW attempted to contact patient's significant other three times, however, phone went straight to voicemail and the voicemail box is full. SW then attempted to contact patient's adult son twice who also resides in patient's home, however, he also didn't answer. SW left a brief voicemail requesting a phone call back. SW updated medical team. Tania Domínguez GREENHOUSE INSTRUCTOR, OLU
[2022-09-08 11:37] LABS: Reflex Lactate? Y
[2022-09-08 11:55] LABS: Anion Gap 15 (5-15); BUN 16 mg/dL (7-18); BUN/Creat Ratio 8.6 RATIO (10-20); Calcium,Total 8.2 mg/dL (8.5-10.1); Chloride 110 mmol/L (98-107); Creatinine, Serum 1.86 mg/dL (0.55-1.02); EST Glomerular Filtration Rate 29 mL/min (>60); Est Glom Filt Rate - Afr Amer 35 mL/min (>60); Estimated Creatinine Clearance 25.94 ml/min; Glucose 291 mg/dL (74-106); Potassium 3.9 mmol/L (3.5-5.1); Sodium Level 139 mmol/L (136-145)
--- NOTE | 2022-09-08 11:55 | ED.RN ---
[employer] at bedside.
--- NOTE | 2022-09-08 12:11 | ED.RN ---
[employer] INCREASED LEVOPHED TO 20MCG/MIN. EPI DRIP GIVEN TO FLIGHT CREW.
--- NOTE | 2022-09-08 12:14 | ED.RN ---
FLIGHT CREW INCREASED LEVOPHED TO 40MCG/MIN
--- NOTE | 2022-09-08 12:19 | ED.RN ---
FLIGHT CREW HUNG EPI DRIP ON THE PUMP AT 10MCG/MIN.
--- NOTE | 2022-09-08 12:23 | ED.RN ---
1215 CENTRAL LINE PLACEMENT.. 7FR, 3 LUMEN, 20CM CATH
--- NOTE | 2022-09-08 13:56 | ED.RN ---
pt received roughly 1 liter of ns during the last hour of life.
== END 2022-09-08 13:31 ==
PROVIDERS: Emergency Medicine; Family Medicine; Student in an Organized Health Care Education/Training Program; Emergency Provider Emergency Medicine; PCP Internal Medicine; Visit Provider Emergency Medicine
DX: K43.9 Ventral hernia without obstruction or gangrene (principal); I46.9 Cardiac arrest, cause unspecified; I95.9 Hypotension, unspecified; E87.1 Hypo-osmolality and hyponatremia; I10 Essential (primary) hypertension; E03.9 Hypothyroidism, unspecified; K21.9 Gastro-esophageal reflux disease without esophagitis; M10.9 Gout, unspecified; R73.9 Hyperglycemia, unspecified; Z90.49 Acquired absence of other specified parts of digestive tract; Z79.82 Long term (current) use of aspirin; Z79.899 Other long term (current) drug therapy; Z87.891 Personal history of nicotine dependence
CPT/HCPCS: 31500; 31720; 36415; 36556; 71045; 74177; 80048; 80053; 83605; 83690; 83735; 84100; 85025; 87040; 92950; 93005; 94002; 96361; 96365; 96366; 96367; 96372; 96375; 96376; 99285; J7030; J7050; Q9967; A4216; J2405; J3490